=== PATIENT | female | born 1990 | race Caucasian/White ===

== ENCOUNTER 2016-06-16 | Outpatient (CLI) | END 2016-06-16 18:32 | disposition EMS.NT ==

== ENCOUNTER 2016-10-08 09:21 | Emergency (ER) | payer MEDICAID ==
[2016-10-08] MEDS ORDERED: cefTRIAXone 1 GM in SODIUM CHLORIDE 0.9% MINIBAG 100 ML IV STA (11:19)
[2016-10-08] MEDS ORDERED: cefTRIAXone 1 GM VIAL ONE ×2 (11:20→11:42)
[2016-10-08] MEDS ORDERED: SODIUM CHLORIDE 0.9% MINIBAG 100 ML IV ONE (11:20)
[2016-10-08] MEDS ORDERED: cefTRIAXone 1 GM VIAL IM STA (11:37)
[2016-10-08] MEDS ORDERED: LIDOCAINE 1% 2 ML VIAL ONE (11:42)
== END 2016-10-08 13:40 | disposition home or self-care (01) ==
DX: N12 Tubulo-interstitial nephritis, not specified as acute or chronic (principal); N26.1 Atrophy of kidney (terminal); R11.2 Nausea with vomiting, unspecified; F17.200 Nicotine dependence, unspecified, uncomplicated

== ENCOUNTER 2016-12-09 18:49 | Emergency (ER) | payer MEDICAID ==
[2016-12-09 19:03] VITALS: BP 136/91
[2016-12-09] MEDS ORDERED: HYDROcod/ACETAM 5/325 MG TABLET PO STA (19:58)
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
[2016-12-09] MEDS ORDERED: HYDROcod/ACETAM 5/325 MG TABLET ONE (20:05)
--- NOTE | 2016-12-09 20:23 | XRAY Preliminary Report ---
Exam: XR Knee 4 View LT IMPRESSION: Normal knee radiography. [facility] SITE ID: [id number]
--- NOTE | 2016-12-09 20:25 | XRAY Report ---
EXAM: LEFT KNEE RADIOGRAPHY EXAM DATE: 12/09/2016 07:58 PM. CLINICAL HISTORY: Knee pain. COMPARISON: None. TECHNIQUE: 4 views. FINDINGS: Bones: Normal. No fractures or bone lesions. Joints: Normal. No effusion. No subluxations. Soft Tissues: Normal. No soft tissue swelling. IMPRESSION: Normal knee radiography. [facility] Referring Provider Line: [phone] SITE ID: [id number]
== END 2016-12-09 20:40 | disposition home or self-care (01) ==
LOC: ED 18:49
DX: S80.01XA Contusion of right knee, initial encounter (principal); S83.92XA Sprain of unspecified site of left knee, initial encounter; V43.62XA Car passenger injured in collision with other type car in traffic accident, initial encounter; R03.0 Elevated blood-pressure reading, without diagnosis of hypertension; F17.200 Nicotine dependence, unspecified, uncomplicated
CPT/HCPCS: 73564; 99283; A9270

== ENCOUNTER 2017-02-19 19:34 | Emergency (ER) | payer MEDICAID ==
[2017-02-19] MEDS ORDERED: ACETAMINOPHEN 325 MG TABLET PO STA (19:50)
--- NOTE | 2017-02-19 19:51 | ED Physician Documentation ---
PD HPI ABD PAIN - Stated complaint Stated Complaint: STOMACH PX - Chief complaint Chief Complaint: Abd Pain - History obtained from History obtained from: Patient - History of Present Illness Timing - onset: Other (26-year-old G4 who had a normal menses about a month ago. Although she does not know the day. She has been sexually active and had a positive urine test at home earlier in the week and today she has bleeding and cramping that is more significant than her usual menses. There is no nausea or vomiting.) Review of Systems Ten Systems: 10 systems reviewed and negative Constitutional: reports: Reviewed and negative Throat: reports: Reviewed and negative Cardiac: reports: Reviewed and negative Respiratory: reports: Reviewed and negative PD PAST MEDICAL HISTORY - Past Medical History Cardiovascular: None Respiratory: None Neuro: None Endocrine/Autoimmune: None GI: None : Chronic bladder infection, Other HEENT: None Psych: Anxiety Musculoskeletal: None - Past Surgical History Past Surgical History: Yes - Present Medications Home Medications: Ambulatory Orders Medication Instructions Recorded Confirmed No Known Home Medications [No 02/19/17 02/19/17 Known Home Medications] - Allergies Allergies/Adverse Reactions: Allergies Allergy/AdvReac Type Severity Reaction Status Date / Time Penicillins Allergy Rash Verified 02/19/17 19:41 - Social History Does the pt smoke?: No Smoking Status: Never smoker Does the pt drink ETOH?: No Does the pt have substance abuse?: No - Family History Family history: reports: Non contributory - Immunizations Immunizations are current?: Yes - POLST Patient has POLST: No PD ED PE NORMAL - Vitals Vital signs reviewed: Yes - General General: Alert and oriented X 3, No acute distress - Abdomen Abdomen: Normal bowel sounds, Soft, Non tender - Female Female : Other (Bedside ultrasound demonstrates no obvious , no free fluid.) - Neuro Neuro: Alert and oriented X 3, Normal speech - Psych Psych: Normal mood, Normal affect Results - Vitals Vitals: Vital Signs - 24 hr 02/19/17 19:38 Temperature 36.6 C Heart Rate 66 Respiratory 16 Rate Blood Pressure 133/93 H O2 Saturation 100 Oxygen O2 Source Room air - Labs Labs: Laboratory Tests 02/19/17 02/19/17 02/19/17 20:00 20:00 20:00 WBC 8.9 RBC 4.65 Hgb 13.9 Hct 41.7 MCV 89.7 MCH 29.8 MCHC 33.2 RDW 13.1 Plt Count 198 MPV 8.7 Neut # 6.4 Lymph # 1.9 [place] # 0.5 Eos # 0.1 Baso # 0.1 Absolute Nucleated RBC 0.00 Nucleated RBCs 0.0 Sodium 138 Potassium 3.6 Chloride 109 Carbon Dioxide 21 Anion Gap 8.0 BUN 25 H Creatinine 1.7 H Estimated GFR (MDRD) 36 L Glucose 97 Calcium 9.3 HCG, Quant < 0.60 PD MEDICAL DECISION MAKING - ED course ED course: 26-year-old woman presents with vaginal bleeding and cramping at the time of her usual menses, it is worse than normal though and she had a recent home positive test and she was worried about miscarriage, she was relieved to know that her serum beta hCG was negative ruling this out. Departure - Departure Disposition: 01 Home, Self Care Clinical Impression: Menses painful Condition: Good Record reviewed to determine appropriate education?: Yes Instructions: ED Bleeding Menstrual Heavy Comments: Your blood pressure was elevated today on check into the emergency department. This does not mean that you have hypertension, it is a common phenomenon to come to the emergency department and have elevated blood pressure. I recommend that she see your primary care physician within the week to have it rechecked when you are feeling better.
[2017-02-19] MEDS ORDERED: ACETAMINOPHEN 325 MG TABLET PO ONE (20:07)
[2017-02-19 20:12] LABS: BASOPHILS # (AUTO) 0.1 10^3/uL (0.0-0.1); BASOPHILS % (AUTO) 0.6 %; EOSINOPHILS # (AUTO) 0.1 10^3/uL (0.0-0.7); EOSINOPHILS % (AUTO) 0.6 %; HCT - HEMATOCRIT 41.7 % (37.0-47.0); HGB - HEMOGLOBIN 13.9 g/dL (12.0-16.0); LYMPHOCYTES # (AUTO) 1.9 10^3/uL (1.5-3.5); LYMPHOCYTES % (AUTO) 21.4 %; MEAN CORPUSCULAR HEMOGLOBIN 29.8 pg (27.0-31.0); MEAN CORPUSCULAR HGB CONC 33.2 g/dL (32.0-36.0); MEAN CORPUSCULAR VOLUME 89.7 fL (81.0-99.0); MEAN PLATELET VOLUME 8.7 fL (7.9-10.8); MONOCYTES # (AUTO) 0.5 10^3/uL (0.0-1.0); MONOCYTES % (AUTO) 5.8 %; NEUTROPHILS # (AUTO) 6.4 10^3/uL (1.5-6.6); NEUTROPHILS % (AUTO) 71.6 %; RED BLOOD COUNT 4.65 10^6/uL (4.20-5.40); RED CELL DISTRIBUTION WIDTH 13.1 % (12.0-15.0); UNCORRECTED WHITE BLOOD COUNT 8.9 x10^3/uL; WHITE BLOOD COUNT 8.9 x10^3/uL (4.8-10.8)
[2017-02-19 20:16] LABS: CALCIUM 9.3 mg/dL (8.5-10.3); CREATININE 1.7 mg/dL (0.4-1.0); POTASSIUM 3.6 mmol/L (3.5-5.0)
[2017-02-19] MEDS ORDERED: HYDROcod/ACET 5/325 Prepack 6 PO STA (20:36)
[2017-02-19] MEDS ORDERED: HYDROcod/ACET 5/325 Prepack 6 PO ONE (20:43)
[2017-02-19 20:44] VITALS: BP 139/88
== END 2017-02-19 20:44 | disposition home or self-care (01) ==
LOC: ED 19:34
DX: N94.6 Dysmenorrhea, unspecified (principal); R03.0 Elevated blood-pressure reading, without diagnosis of hypertension
CPT/HCPCS: 36415; 80048; 84702; 85025; 99282; 99283

== ENCOUNTER 2017-08-10 10:54 | Emergency (ER) | payer MEDICAID | END 2017-08-10 11:30 | disposition left against medical advice (07) | LOC: ED 10:54 | DX: Z53.9 Procedure and treatment not carried out, unspecified reason (principal) ==

== ENCOUNTER 2017-08-13 18:29 | Emergency (ER) | payer MEDICAID ==
[2017-08-13] MEDS ORDERED: SODIUM CHLORIDE 0.9% 1,000 ML IV ONE (20:06)
[2017-08-13] MEDS ORDERED: KETOROLAC 60 MG/2 ML VIAL IVP STA (20:06)
[2017-08-13 20:25] LABS: BASOPHILS % (AUTO) 0.4 %; EOSINOPHILS % (AUTO) 0.1 %; HGB - HEMOGLOBIN 14.5 g/dL (12.0-16.0); LYMPHOCYTES # (AUTO) 0.9 10^3/uL (1.5-3.5); LYMPHOCYTES % (AUTO) 20.3 %; MEAN CORPUSCULAR HEMOGLOBIN 29.3 pg (27.0-31.0); MEAN CORPUSCULAR HGB CONC 33.4 g/dL (32.0-36.0); MEAN CORPUSCULAR VOLUME 87.9 fL (81.0-99.0); MEAN PLATELET VOLUME 8.2 fL (7.9-10.8); MONOCYTES # (AUTO) 0.5 10^3/uL (0.0-1.0); MONOCYTES % (AUTO) 10.8 %; NEUTROPHILS % (AUTO) 68.4 %; PLT - PLATELET COUNT 175 10^3/uL (130-450); RED BLOOD COUNT 4.93 10^6/uL (4.20-5.40); RED CELL DISTRIBUTION WIDTH 12.7 % (12.0-15.0); WHITE BLOOD COUNT 4.4 x10^3/uL (4.8-10.8)
[2017-08-13 20:39] LABS: ALBUMIN 3.6 g/dL (3.2-5.5); ALBUMIN/GLOBULIN RATIO 0.9 (1.0-2.2); BILIRUBIN,TOTAL 0.4 mg/dL (0.2-1.0); CALCIUM 8.9 mg/dL (8.5-10.3); CREATININE 2.3 mg/dL (0.4-1.0); TOTAL PROTEIN 7.6 g/dL (6.7-8.2)
--- NOTE | 2017-08-13 21:16 | ED Physician Documentation ---
History of Present Illness - Stated complaint Stated Complaint: FEVER/EAR PX - Chief complaint Chief Complaint: General - History obtained from History obtained from: Patient - History of Present Illness Timing: How many days ago (4) - Additonal information Additional information: Patient is a 27 year old female with a history of renal failure who is presenting to the emergency department for fevers, chills, congestion, ear pain and vomiting. Patient states that the symptoms have been going on for the last 4 days or so. She came to the hospital once but did not want to wait so she went home. 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 Review of Systems Constitutional: reports: Fever, Chills, Myalgias Eyes: denies: Decreased vision, Irritation Ears: reports: Ear pain Nose: reports: Rhinorrhea / runny nose, Congestion, Sinus pressure / pain Throat: denies: Sore throat Cardiac: denies: Chest pain / pressure, Palpitations Respiratory: denies: Cough, Wheezing GI: reports: Nausea, Vomiting. denies: Constipation, Diarrhea : reports: Reviewed and negative Skin: denies: Rash, Lesions Musculoskeletal: denies: Neck pain, Back pain, Extremity pain Neurologic: reports: Generalized weakness. denies: Focal weakness, Headache, LOC Immunocompromised: denies: Immunocompromised PD PAST MEDICAL HISTORY - Past Medical History Past Medical History: Yes Cardiovascular: None Respiratory: None Neuro: None Endocrine/Autoimmune: None GI: None : Chronic bladder infection, Other HEENT: None Psych: Anxiety Musculoskeletal: None - Past Surgical History Past Surgical History: Yes - Present Medications Home Medications: Ambulatory Orders Medication Instructions Recorded Confirmed Ondansetron Odt [Zofran] 4 mg TL Q6H PRN #20 tablet 08/13/17 - Allergies Allergies/Adverse Reactions: Allergies Allergy/AdvReac Type Severity Reaction Status Date / Time Penicillins Allergy Rash Verified 08/13/17 18:46 - Social History Does the pt smoke?: No Smoking Status: Never smoker Does the pt drink ETOH?: No Does the pt have substance abuse?: No - Immunizations Immunizations are current?: Yes - POLST Patient has POLST: No PD ED PE NORMAL - Vitals Vital signs reviewed: Yes - General General: Alert and oriented X 3 - HEENT HEENT: Atraumatic, PERRL - Neck Neck: Supple, no meningeal sign - Cardiac Cardiac: RRR, No murmur - Respiratory Respiratory: No respiratory distress - Abdomen Abdomen: Soft, Non tender, Non distended - Derm Derm: Normal color, No rash - Extremities Extremities: No deformity - Neuro Neuro: Alert and oriented X 3 Eye Opening: Spontaneous PD ED PE EXPANDED - General General: Alert - HEENT HEENT: R TM bulging, L TM bulging, Nasal congestion, Rhinorrhea, Dry mucous membranes Results - Vitals Vitals: Vital Signs - 24 hr 08/13/17 08/13/17 18:42 21:45 Temperature 37.4 C 36.4 C L Heart Rate 107 H 95 Respiratory 18 16 Rate Blood Pressure 133/94 H 134/66 H O2 Saturation 99 98 Oxygen O2 Source Room air - Labs Labs: Laboratory Tests 08/13/17 08/13/17 08/13/17 20:19 20:19 20:26 WBC 4.4 L RBC 4.93 Hgb 14.5 Hct 43.3 MCV 87.9 MCH 29.3 MCHC 33.4 RDW 12.7 Plt Count 175 MPV 8.2 Neut # 3.0 Lymph # 0.9 L [place] # 0.5 Eos # 0.0 Baso # 0.0 Absolute Nucleated RBC 0.01 Nucleated RBC % 0.3 Sodium 138 Potassium 3.8 Chloride 107 Carbon Dioxide 21 Anion Gap 10.0 BUN 27 H Creatinine 2.3 H Estimated GFR (MDRD) 25 L Glucose 92 Calcium 8.9 Total Bilirubin 0.4 AST 21 ALT 16 Alkaline Phosphatase 63 Total Protein 7.6 Albumin 3.6 Globulin 4.0 Albumin/Globulin Ratio 0.9 L Lipase 18 L Influenza A (Rapid) Negative Influenza B (Rapid) POSITIVE H Influenza Types A,B Ag + H PD MEDICAL DECISION MAKING - ED course Complexity details: reviewed old records, reviewed results, re-evaluated patient , considered differential, d/w patient ED course: patient was seen and examined at bedside. IV access was gained and patient was treated with a fluid bolus. flu swab was performed and was positive. Patient was made aware of her findings and her renal function tests were printed off for her. the importance of nephrology follow up was made clear and patient stated that she would be able to follow up with week. Patient was tolerated PO without difficulty. Patient required no further inpatient work up and was stable for discharge with outpatient follow up. Departure - Departure Disposition: 01 Home, Self Care Clinical Impression: Influenza Condition: Good Instructions: ED Flu Follow-Up: primary,care provider [Other] - Tomorrow Prescriptions: Ondansetron Odt [Zofran] 4 mg TL Q6H PRN #20 tablet PRN Reason: Nausea / Vomiting Comments: Your symptoms today are being caused by the flu. YOu should take tylenol 1gm every 6 hours as needed for fevers and aches. Your kidney function is getting worse and it is imperative that you follow up with your doctor tomorrow. You should drink at least 100oz of fluids (mainly water) a day. You may return to the emergency department at any time for new, worsening or uncontrollable symptoms. Discharge Date/Time: 08/13/17 21:51
[2017-08-13 21:46] VITALS: BP 134/66
== END 2017-08-13 21:51 | disposition home or self-care (01) ==
LOC: ED 18:29
DX: J11.1 Influenza due to unidentified influenza virus with other respiratory manifestations (principal)
CPT/HCPCS: 36415; 80053; 83690; 85025; 87275; 87276; 96361; 96374; 99283

== ENCOUNTER 2018-05-05 17:43 | Outpatient (CLI) | payer MEDICAID ==
[2018-05-05 18:06] LABS: BILIRUBIN,URINE NEGATIVE (NEGATIVE); GLUCOSE, URINE (UA) NEGATIVE (NEGATIVE); KETONES,URINE (UA) NEGATIVE (NEGATIVE); LEUKOCYTE ESTERASE, URINE SMALL (NEGATIVE); NITRITE,URINE NEGATIVE (NEGATIVE); OCCULT BLOOD,URINE TRACE-INTA (NEGATIVE); PROTEIN,URINE 100 mg/dL (NEGATIVE); UROBILINOGEN,URINE 0.2 (NORMAL) E.U./dL (NORMAL)
[2018-05-05 18:07] LABS: BASOPHILS # (AUTO) 0.1 10^3/uL (0.0-0.1); BASOPHILS % (AUTO) 0.9 %; CLARITY,URINE HAZY (CLEAR); EOSINOPHILS # (AUTO) 0.1 10^3/uL (0.0-0.7); HGB - HEMOGLOBIN 14.1 g/dL (12.0-16.0); LYMPHOCYTES # (AUTO) 1.8 10^3/uL (1.5-3.5); LYMPHOCYTES % (AUTO) 26.1 %; MEAN CORPUSCULAR HEMOGLOBIN 29.6 pg (27.0-31.0); MEAN CORPUSCULAR HGB CONC 32.5 g/dL (32.0-36.0); MEAN PLATELET VOLUME 8.6 fL (7.9-10.8); MONOCYTES # (AUTO) 0.4 10^3/uL (0.0-1.0); NEUTROPHILS # (AUTO) 4.6 10^3/uL (1.5-6.6); PLT - PLATELET COUNT 212 10^3/uL (130-450); RED BLOOD COUNT 4.76 10^6/uL (4.20-5.40); RED CELL DISTRIBUTION WIDTH 13.1 % (12.0-15.0); WHITE BLOOD COUNT 6.9 x10^3/uL (4.8-10.8)
[2018-05-05 18:25] LABS: ALBUMIN/GLOBULIN RATIO 1.2 (1.0-2.2); ALKALINE PHOSPHATASE 71 IU/L (42-121); ALT ALANINE AMINOTRANSFERASE 14 IU/L (10-60); AST ASPARTATE AMINOTRANSFERASE 19 IU/L (10-42); BILIRUBIN,TOTAL 0.3 mg/dL (0.2-1.0); BUN - BLOOD UREA NITROGEN 27 mg/dL (6-20); CARBON DIOXIDE - CO2 19 mmol/L (21-32); CHLORIDE 112 mmol/L (101-111); CHOL/HDL RATIO 4.2 (<4.4); CHOLESTEROL 191 mg/dL; CREATININE 2.1 mg/dL (0.4-1.0); GFR - MDRD 28 (>89); GLUCOSE 93 mg/dL (70-100); HDL CHOLESTEROL 45 mg/dL; LDL CHOLESTEROL,CALCULATED 124 mg/dL; LDL/HDL RATIO 2.8 (<4.4); SODIUM 138 mmol/L (135-145); TOTAL PROTEIN 7.4 g/dL (6.7-8.2); VLDL CHOLESTEROL 22 mg/dL
--- NOTE | 2018-05-06 14:37 | XRAY Report ---
Reason: Lumbar Pain Procedure Date: 05/05/2018 Accession Number: [id number] / [id number] Procedure: XR - Lumbar Spine 2 View CPT Code: FULL RESULT: EXAM: LUMBOSACRAL SPINE RADIOGRAPHY EXAM DATE: 05/05/2018 06:18 PM. CLINICAL HISTORY: Lumbar Pain. COMPARISONS: LUMBAR SPINE 2 VIEW 06/16/2015 9:53 AM XR LUMBAR SPINE 2 OR 3 VIEWS 07/11/2010 5:01 PM. TECHNIQUE: 2 views. FINDINGS: Alignment: Normal. No spondylolisthesis or scoliosis. Bones: Five cgj-mzz-dquptse lumbar vertebral bodies are present. No fractures or bone lesions. Disks: Normal. Disk heights are maintained. Facets: No degenerative changes. Sacroiliac Joints: Unremarkable. Soft Tissues: Normal. The visualized bowel gas pattern is normal. IMPRESSION: Normal lumbar spine radiography. No acute osseous abnormality. [facility]
== END 2018-05-05 17:44 | disposition home or self-care (01) ==
LOC: DI 17:43
PROVIDERS: ATTEND Internal Medicine
DX: M54.5 Low back pain (principal); N18.3 Chronic kidney disease, stage 3 (moderate); N39.0 Urinary tract infection, site not specified; F41.1 Generalized anxiety disorder
CPT/HCPCS: 36415; 72100; 80053; 80061; 81003; 83721; 84443; 85025

== ENCOUNTER 2018-05-06 22:53 | Emergency (ER) | payer MEDICAID ==
[2018-05-06 23:10] VITALS: BP 151/77
--- NOTE | 2018-05-07 00:49 | ED Physician Documentation ---
PD HPI LOWER EXT INJURY - Stated complaint Stated Complaint: LT FOOT PX - Chief complaint Chief Complaint: Ext Problem - History obtained from History obtained from: Patient - History of Present Illness PD HPI LOW EXT INJURY LOCATION: Left, Sole / plantar Type of injury: Other (just onset of pain near heel with walking and at end of day 2 months ago and is gett). No: Fall, Twist Where injury occurred: Home. No: A house / apartment Timing - onset: Enter time (over a month) Timing - duration: Months (1) Associated symptoms: No: Weakness, Numbness Contributing factors: No: Anticoagulated Similar symptoms before: Has not had sx before Review of Systems Constitutional: denies: Fever, Chills Musculoskeletal: reports: Extremity pain. 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 - Past Surgical History Past Surgical History: Yes - Present Medications Home Medications: Ambulatory Orders Medication Instructions Recorded Confirmed Dexamethasone [Decadron] 4 mg PO DAILY #5 tablet 05/07/18 Naproxen 375 mg PO BID #20 tablet 05/07/18 Tramadol HCl 50 mg PO Q6H PRN #15 tablet 05/07/18 - Allergies Allergies/Adverse Reactions: Allergies Allergy/AdvReac Type Severity Reaction Status Date / Time Penicillins Allergy Rash Verified 05/06/18 23:10 - Social History Does the pt smoke?: No Smoking Status: Former smoker Does the pt drink ETOH?: No ETOH Use: Liquor Does the pt have substance abuse?: No - Immunizations Immunizations are current?: Yes - POLST Patient has POLST: No PD ED PE NORMAL - Vitals Vital signs reviewed: Yes - General General: Alert and oriented X 3, No acute distress, Well developed/nourished, Other (limping gait) - Cardiac Cardiac: RRR, No murmur - Back Back: No CVA TTP, No spinal TTP - Derm Derm: Normal color, Warm and dry - Extremities Extremities: No tenderness to palpate, Normal ROM s pain, Other (left proximal plantar area with marked tenderness without rash. Mild local swelling.) - Neuro Neuro: Alert and oriented X 3, No motor deficit, No sensory deficit, Normal speech Results - Vitals Vitals: Oxygen O2 Source Room air Departure - Departure Disposition: 01 Home, Self Care Clinical Impression: Plantar fasciitis of left foot Condition: Stable Record reviewed to determine appropriate education?: Yes Instructions: ED Plantar Fasciitis Follow-Up: Kristin Holguin MD [Primary Care Provider] - Prescriptions: Dexamethasone [Decadron] 4 mg PO DAILY #5 tablet Naproxen 375 mg PO BID #20 tablet Tramadol HCl 50 mg PO Q6H PRN #15 tablet PRN Reason: Pain Comments: Use the firm soled shoe to reduce stretch and movement through the midfoot. Also importantly pick pack worker a heel cup padding at the store that will soften and lift the heel slightly and change the angle of the ankle just slightly so it reduces the stretch in the plantar fascia. Decadron steroid anti-inflammatory for 5 more days. Naproxen anti-inflammatory twice daily for the next week. Add tramadol if needed for pain. Follow-up with your primary care if not improved over the next several days to week. This will take a little bit of a while to improve (often a week or two, but should be improving over the first several days to a week). Discharge Date/Time: 05/07/18 01:47
[2018-05-07] MEDS ORDERED: HYDROcod/ACETAM 5/325 MG TABLET PO STA (01:12)
[2018-05-07] MEDS ORDERED: NAPROXEN 250 MG TABLET PO STA (01:12)
[2018-05-07] MEDS ORDERED: DEXAMETHASONE 10 MG/ML VIAL PO STA (01:12)
[2018-05-07] MEDS ORDERED: CHERRY SYRUP 10 ML UDC PO ONE (01:34)
== END 2018-05-07 01:47 | disposition home or self-care (01) ==
LOC: ED 22:53
DX: M72.2 Plantar fascial fibromatosis (principal); Z87.891 Personal history of nicotine dependence
CPT/HCPCS: 99283; A9270

== ENCOUNTER 2018-08-02 17:22 | Emergency (ER) | payer MEDICAID ==
[2018-08-02] MEDS ORDERED: SODIUM CHLORIDE 0.9% 1,000 ML IV ONE (17:48)
[2018-08-02] MEDS ORDERED: KETOROLAC 30 MG/ML VIAL IVP STA (17:48)
[2018-08-02] MEDS ORDERED: METOCLOPRAMIDE 10 MG/2 ML VIAL IVP STA (17:48)
--- NOTE | 2018-08-02 17:51 | ED Physician Documentation ---
PD HPI HEADACHE - Stated complaint Stated Complaint: DWYER/BLURRY VISION - Chief complaint Chief Complaint: Neuro - History obtained from History obtained from: Patient - History of Present Illness Timing - onset: Other (The last 6 months she said increasing bitemporal headaches associated with gold flakes in her vision throughout both of her eyes. She is not nauseous but light does bother her. She denies neck stiffness or fevers. There is no possibility of . 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 : Chronic bladder infection, Kidney stones, Other HEENT: None Psych: Anxiety Musculoskeletal: None Derm: None, Other - Past Surgical History Past Surgical History: Yes - Present Medications Home Medications: Ambulatory Orders Medication Instructions Recorded Confirmed Acetaminophen/Cod 300/30 [Tylenol 1 each PO Q4-6H 08/02/18 08/02/18 #3] SUMAtriptan [Imitrex] 25 mg PO BID PRN #10 tablet 08/02/18 - Allergies Allergies/Adverse Reactions: Allergies Allergy/AdvReac Type Severity Reaction Status Date / Time Penicillins Allergy Rash Verified 08/02/18 17:32 - Social History Does the pt smoke?: No Smoking Status: Former smoker Does the pt drink ETOH?: No Does the pt have substance abuse?: No - Immunizations Immunizations are current?: Yes - POLST Patient has POLST: No PD ED PE NORMAL - Vitals Vital signs reviewed: Yes - General General: Alert and oriented X 3, No acute distress - HEENT HEENT: PERRL, EOMI - Neck Neck: Supple, no meningeal sign, No bony TTP - Cardiac Cardiac: RRR, No murmur - Respiratory Respiratory: No respiratory distress, Clear bilaterally - Abdomen Abdomen: Non tender - Back Back: No CVA TTP, No spinal TTP - Derm Derm: Normal color, Warm and dry - Extremities Extremities: No edema, No calf tenderness / cord - Neuro Neuro: Alert and oriented X 3, Normal speech Eye Opening: Spontaneous Motor: Obeys Commands Verbal: Oriented GCS Score: 15 - Psych Psych: Other (Slightly histrionic and tangential) Results - Vitals Vitals: Vital Signs - 24 hr 08/02/18 17:29 Temperature 36.3 C L Heart Rate 74 Respiratory 20 Rate Blood Pressure 147/87 H O2 Saturation 100 Oxygen O2 Source Room air - Rads (name of study) CT Head Radiology: EMP read contemporaneously (normal) PD MEDICAL DECISION MAKING - ED course ED course: 28-year-old woman with what sounds like migraine headaches that are new, she did actually have relief with Toradol and Reglan here. She requested cranial imaging which is not unreasonable, and this was negative. She understands she needs to follow-up with her physician for further evaluation and treatment. Departure - Departure Disposition: 01 Home, Self Care Clinical Impression: Migraine Qualifiers: Migraine type: with aura Status migrainosus presence: with status migrainosus Intractability: intractable Qualified Code(s): G43.111 - Migraine with aura, intractable, with status migrainosus Condition: Stable Record reviewed to determine appropriate education?: Yes Instructions: Imitrex, ED Headache Migraine Prescriptions: SUMAtriptan [Imitrex] 25 mg PO BID PRN #10 tablet PRN Reason: Headache Comments: Call your doctor to arrange a follow-up appointment, make the next available appointment. In the interim, return anytime if worse or if new symptoms develop. Your blood pressure was elevated today on check into the emergency department. This does not mean that you have hypertension, it is a common phenomenon to come to the emergency department and have elevated blood pressure. I recommend that you see your primary care physician within the week to have it rechecked when you are feeling better.
--- NOTE | 2018-08-02 19:04 | CT Report ---
Reason: headache Procedure Date: 08/02/2018 Accession Number: [id number] / [id number] Procedure: CT - HEAD WO CPT Code: FULL RESULT: EXAM: CT HEAD EXAM DATE: 08/02/2018 06:21 PM. CLINICAL HISTORY: Headache. COMPARISON: HEAD W/O 07/23/2014 4:24 PM HEAD 06/22/2011 3:48 AM. TECHNIQUE: Multiaxial CT images were obtained from the foramen magnum to the vertex. Reformats: Sagittal and coronal. IV contrast: None. In accordance with CT protocol optimization, one or more of the following dose reduction techniques were utilized for this exam: automated exposure control, adjustment of mA and/or KV based on patient size, or use of iterative reconstructive technique. FINDINGS: Parenchyma: No intraparenchymal hemorrhage. No evidence of mass, midline shift, or CT findings of infarction. Pimentel-white differentiation is distinct. Extraaxial Spaces: Normal for age. No subdural or epidural collections identified. Ventricles: Normal in size and position. Sinuses and Orbits: Imaged paranasal sinuses, orbits, and mastoids show no significant abnormality. Bones: No evidence of fracture or calvarial defect. Other: None. IMPRESSION: No acute intracranial CT abnormality. RADIA
[2018-08-02 19:30] VITALS: BP 132/78
== END 2018-08-02 19:30 | disposition home or self-care (01) ==
LOC: ED 17:22
DX: G43.111 Migraine with aura, intractable, with status migrainosus (principal); R03.0 Elevated blood-pressure reading, without diagnosis of hypertension; Z87.891 Personal history of nicotine dependence
CPT/HCPCS: 70450; 96361; 96374; 99283; J2765

== ENCOUNTER 2018-09-15 22:54 | Emergency (ER) | payer MEDICAID ==
[2018-09-15 23:16] LABS: BILIRUBIN,URINE NEGATIVE (NEGATIVE); GLUCOSE, URINE (UA) NEGATIVE (NEGATIVE); KETONES,URINE (UA) NEGATIVE (NEGATIVE); LEUKOCYTE ESTERASE, URINE MODERATE (NEGATIVE); NITRITE,URINE POSITIVE (NEGATIVE); OCCULT BLOOD,URINE TRACE-LYSE (NEGATIVE); PROTEIN,URINE 100 mg/dL (NEGATIVE); UROBILINOGEN,URINE 0.2 (NORMAL) E.U./dL (NORMAL)
[2018-09-15 23:18] LABS: CLARITY,URINE SL. CLOUDY (CLEAR); HCG UR QUAL NEGATIVE
[2018-09-15 23:26] LABS: BACTERIA,URINE Many /HPF (None Seen); MUCUS,URINE Marked Strands; RBC,URINE 3 /HPF (0-5); SQUAMOUS EPITHELIAL CELL,UR RARE Squamous (<= Few)
--- NOTE | 2018-09-15 23:45 | ED Physician Documentation ---
PD HPI FEMALE - Stated complaint Stated Complaint: ABD CRAMP - Chief complaint Chief Complaint: Abd Pain - History obtained from History obtained from: Patient - History of Present Illness Timing - onset: How many weeks ago (3) Timing - duration: Weeks (3) Timing - details: Gradual onset, Still present Associated symptoms: Back pain, Pelvic pain, Urinary frequency Contributing factors: (has had 3 + tests last night followed by 2 negative tests after consuming fluids.) Similar symptoms before: Diagnosis (UTI) Recently seen: Clinic - Additional information Additional information: 28-year-old female reports that she has had some pelvic cramping is been going on for some time she has been drinking some fluids with cranberry juice and it and she has had 3+ test last night. She reports that after she drank some fluid following that she had 2- test. She also reports that she is been to see her doctor and had a negative test on 07 September. She does acknowledge urinary frequency. Review of Systems Constitutional: denies: Fever Eyes: denies: Decreased vision Ears: denies: Ear pain Nose: denies: Rhinorrhea / runny nose, Congestion Throat: denies: Sore throat Cardiac: denies: Chest pain / pressure, Palpitations Respiratory: denies: Dyspnea, Cough GI: reports: Abdominal Pain. denies: Nausea, Vomiting : reports: Frequency. denies: Dysuria Skin: denies: Rash Musculoskeletal: reports: Back pain. 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 : Chronic bladder infection, Kidney stones, Other HEENT: None Psych: Anxiety Musculoskeletal: None Derm: None, Other - Past Surgical History Past Surgical History: Yes /TRENCH PIPE LAYER: Other - Present Medications Home Medications: Ambulatory Orders Medication Instructions Recorded Confirmed Acetaminophen/Cod 300/30 [Tylenol 1 each PO Q4-6H 08/02/18 08/02/18 #3] SUMAtriptan [Imitrex] 25 mg PO BID PRN #10 tablet 08/02/18 Sulfamethoxazole/Trimethoprim 1 each PO BID #10 tablet 09/16/18 [Sulfamethoxazole-Tmp Ds Tablet] - Allergies Allergies/Adverse Reactions: Allergies Allergy/AdvReac Type Severity Reaction Status Date / Time Penicillins Allergy Rash Verified 09/15/18 23:02 - Social History Does the pt smoke?: No Smoking Status: Never smoker Does the pt drink ETOH?: No Does the pt have substance abuse?: No - Immunizations Immunizations are current?: Yes - POLST Patient has POLST: No PD ED PE NORMAL - Vitals Vital signs reviewed: Yes (normal ) - General General: Alert and oriented X 3, No acute distress, Well developed/nourished - HEENT HEENT: Atraumatic, PERRL, EOMI - Neck Neck: Supple, no meningeal sign - Cardiac Cardiac: RRR, No murmur - Respiratory Respiratory: No respiratory distress, Clear bilaterally - Abdomen Abdomen: Soft, Non tender - Back Back: No CVA TTP, No spinal TTP - Derm Derm: Normal color, Warm and dry, No rash - Extremities Extremities: No deformity, No edema - Neuro Neuro: Alert and oriented X 3, java technical architect 2-12 intact, No motor deficit, No sensory deficit, Normal speech Eye Opening: Spontaneous Motor: Obeys Commands Verbal: Oriented GCS Score: 15 - Psych Psych: Normal mood, Normal affect Results - Vitals Vitals: Vital Signs - 24 hr 09/15/18 09/15/18 22:56 23:05 Temperature 36.8 C 36.8 C Heart Rate 83 83 Respiratory 18 18 Rate Blood Pressure 130/61 130/61 O2 Saturation 100 100 Oxygen O2 Source Room air - Labs Labs: Laboratory Tests 09/15/18 09/15/18 09/15/18 23:07 23:07 23:45 HCG, Quant < 0.60 Urine Color YELLOW Urine Clarity SL. CLOUDY Urine pH 6.0 Ur Specific [place] 1.020 1.020 Urine Protein 100 H Urine Glucose (UA) NEGATIVE Urine Ketones NEGATIVE Urine Occult Blood TRACE-LYSE Urine Nitrite POSITIVE H Urine Bilirubin NEGATIVE Urine Urobilinogen 0.2 (NORMAL) Ur Leukocyte Esterase MODERATE H Urine RBC 3 Urine WBC >25 H Ur Squamous Epith Cells RARE Squamous Urine Bacteria Many H Urine Mucus Marked Strands Ur Microscopic Review INDICATED Urine Culture Comments INDICATED Urine HCG, Qual NEGATIVE PD MEDICAL DECISION MAKING - ED course Complexity details: reviewed results, re-evaluated patient, considered differential, d/w patient ED course: 28 y/o female with some abdominal cramping has UTI on evaluation of the urine. She was concerned about and this does not seem likely given her quant of <0.6. Departure - Departure Disposition: 01 Home, Self Care Clinical Impression: Urinary tract infection Qualifiers: Urinary tract infection type: acute cystitis Hematuria presence: without hematuria Qualified Code(s): N30.00 - Acute cystitis without hematuria Condition: Stable Instructions: ED UTI Cystitis Female Follow-Up: Kristin Holguin MD [Primary Care Provider] - Prescriptions: Sulfamethoxazole/Trimethoprim [Sulfamethoxazole-Tmp Ds Tablet] 1 each PO BID #10 tablet
[2018-09-16] MEDS ORDERED: SULFAM/TRIM 800/160 Prepack 2 PO ONE (00:24)
[2018-09-16 00:52] VITALS: BP 136/61
== END 2018-09-16 00:52 | disposition home or self-care (01) ==
LOC: ED 22:54
DX: N30.00 Acute cystitis without hematuria (principal)
CPT/HCPCS: 36415; 81001; 81003; 81025; 84702; 87086; 87181; 99283

== ENCOUNTER 2018-10-22 09:11 | Outpatient (CLI) | payer MEDICAID ==
--- NOTE | 2018-10-22 12:36 | Ultrasound Report ---
Reason: UNSPECIFIED ABDOMINAL PAIN Procedure Date: 10/22/2018 Accession Number: [id number] / [id number] Procedure: US - Abdomen Complete CPT Code: FULL RESULT: EXAM: ABDOMEN ULTRASOUND EXAM DATE: 10/22/2018 10:00 AM. CLINICAL HISTORY: Unspecified abdominal pain. COMPARISON: ABDOMEN/PELVIS W/O 10/08/2016 10:46 AM. TECHNIQUE: Real-time scanning was performed with static images obtained. FINDINGS: Liver: Normal in size and echotexture. 13.4 cm. Main portal vein flow: Hepatopetal. Gallbladder: Normal. No stones, wall thickening, or sonographic Brooke's sign. Biliary System: Common bile duct measures 3 mm. No intrahepatic or extrahepatic ductal dilatation. Pancreas: Visualized portion is unremarkable. Kidneys: Right: 7.1 cm longitudinally. Diffusely increased echotexture to the cortex. Areas of cortical volume loss. Left: 9.2 cm longitudinally. Diffusely increased in echotexture lobulated contour with areas of volume loss. Probable 1.9 cm crenulated cyst of the upper mid cortex. Spleen: 9.4 x 4.8 x 9.7 cm. Normal in size and echotexture. Aorta and Inferior Vena Cava: Unremarkable. Other: None. IMPRESSION: 1. Lobular contour, atrophic echogenic kidneys consistent with medical renal disease. 2. No other specific findings of concern. Normal appearance to the gallbladder. RADIA
== END 2018-10-22 09:12 | disposition home or self-care (01) ==
LOC: DI 09:11
PROVIDERS: ATTEND Internal Medicine
DX: N26.1 Atrophy of kidney (terminal) (principal); R10.9 Unspecified abdominal pain
CPT/HCPCS: 76700

== ENCOUNTER 2018-10-26 12:22 | Outpatient (CLI) | payer MEDICAID ==
[2018-10-26 17:38] LABS: BILIRUBIN,URINE NEGATIVE (NEGATIVE); GLUCOSE, URINE (UA) NEGATIVE (NEGATIVE); KETONES,URINE (UA) NEGATIVE (NEGATIVE); LEUKOCYTE ESTERASE, URINE MODERATE (NEGATIVE); NITRITE,URINE NEGATIVE (NEGATIVE); OCCULT BLOOD,URINE SMALL (NEGATIVE); PROTEIN,URINE >=300 mg/dL (NEGATIVE); UROBILINOGEN,URINE 0.2 (NORMAL) E.U./dL (NORMAL)
[2018-10-26 17:42] LABS: CLARITY,URINE HAZY (CLEAR)
[2018-10-26 17:45] LABS: BACTERIA,URINE Few /HPF (None Seen); SQUAMOUS EPITHELIAL CELL,UR MANY Squamous (<= Few); WBC CLUMPS,URINE PRESENT
== END 2018-10-26 23:59 | disposition home or self-care (01) ==
LOC: LAB.R 12:22
PROVIDERS: ATTEND Obstetrics & Gynecology
DX: R39.9 Unspecified symptoms and signs involving the genitourinary system (principal)
CPT/HCPCS: 81001; 81003; 87086

== ENCOUNTER 2018-10-26 12:22 | Outpatient (CLI) | payer MEDICAID ==
[2018-10-26 21:21] LABS: CANDIDA GROUP DNA NEGATIVE (NEGATIVE); CANDIDA KRUSEI DNA NEGATIVE (NEGATIVE); TRICHOMONAS VAGINALIS DNA NEGATIVE (NEGATIVE)
[2018-10-26 21:57] LABS: TRICHOMONAS VAGINALIS DNA NEGATIVE (NEGATIVE)
== END 2018-10-26 23:59 | disposition home or self-care (01) ==
LOC: LAB.R 12:22
PROVIDERS: ATTEND Obstetrics & Gynecology
DX: N89.8 Other specified noninflammatory disorders of vagina (principal)
CPT/HCPCS: 87491; 87591; 87661; 87801

== ENCOUNTER 2018-10-26 12:26 | Outpatient (CLI) | payer MEDICAID ==
[2018-10-27 10:42] LABS: HEPATITIS B SURFACE ANTIGEN NON-REACTIVE (NON-REACTIVE)
[2018-10-27 12:12] LABS: HIV AG/AB 4TH GEN NON-REACTIVE (NON-REACTIVE)
== END 2018-10-26 12:27 | disposition home or self-care (01) ==
LOC: LAB 12:26
PROVIDERS: ATTEND Obstetrics & Gynecology
DX: N89.8 Other specified noninflammatory disorders of vagina (principal); Z11.3 Encounter for screening for infections with a predominantly sexual mode of transmission
CPT/HCPCS: 36415; 81599; 87340; 87389

== ENCOUNTER 2018-11-13 08:00 | Outpatient (CLI) | payer MEDICAID | END 2018-11-13 23:59 | disposition home or self-care (01) | LOC: LAB.R 08:00 | PROVIDERS: ATTEND Obstetrics & Gynecology | DX: A56.09 Other chlamydial infection of lower genitourinary tract (principal) | CPT/HCPCS: 87491; 87591; 87661 ==

== ENCOUNTER 2018-11-16 08:00 | Outpatient (CLI) | payer MEDICAID ==
[2018-11-16 21:04] LABS: TRICHOMONAS VAGINALIS DNA NEGATIVE (NEGATIVE)
== END 2018-11-16 23:59 | disposition home or self-care (01) ==
LOC: LAB.R 08:00
PROVIDERS: ATTEND Obstetrics & Gynecology
DX: A56.09 Other chlamydial infection of lower genitourinary tract (principal)
CPT/HCPCS: 87491; 87591; 87661

== ENCOUNTER 2018-12-06 16:47 | Outpatient (CLI) | payer MEDICAID ==
[2018-12-06 21:37] LABS: CANDIDA GROUP DNA POSITIVE (NEGATIVE); CANDIDA KRUSEI DNA NEGATIVE (NEGATIVE); TRICHOMONAS VAGINALIS DNA NEGATIVE (NEGATIVE)
== END 2018-12-06 23:59 | disposition home or self-care (01) ==
LOC: LAB.R 16:47
PROVIDERS: ATTEND Obstetrics & Gynecology
DX: A56.09 Other chlamydial infection of lower genitourinary tract (principal); R39.9 Unspecified symptoms and signs involving the genitourinary system; Z11.3 Encounter for screening for infections with a predominantly sexual mode of transmission; N89.8 Other specified noninflammatory disorders of vagina
CPT/HCPCS: 87661; 87801

== ENCOUNTER 2018-12-06 16:47 | Outpatient (CLI) | payer MEDICAID | END 2018-12-06 23:59 | disposition home or self-care (01) | LOC: LAB.R 16:47 | PROVIDERS: ATTEND Obstetrics & Gynecology | DX: R39.9 Unspecified symptoms and signs involving the genitourinary system (principal); A56.09 Other chlamydial infection of lower genitourinary tract; Z11.3 Encounter for screening for infections with a predominantly sexual mode of transmission; N89.8 Other specified noninflammatory disorders of vagina | CPT/HCPCS: 87086 ==

== ENCOUNTER 2018-12-28 10:38 | Outpatient (CLI) | payer MEDICAID | END 2018-12-28 23:59 | disposition home or self-care (01) | LOC: LAB.R 10:38 | PROVIDERS: ATTEND Obstetrics & Gynecology | DX: N39.0 Urinary tract infection, site not specified (principal) | CPT/HCPCS: 87086 ==

== ENCOUNTER 2018-12-28 10:38 | Outpatient (CLI) | payer MEDICAID ==
[2018-12-28 21:45] LABS: CANDIDA GROUP DNA NEGATIVE (NEGATIVE); CANDIDA KRUSEI DNA NEGATIVE (NEGATIVE); TRICHOMONAS VAGINALIS DNA NEGATIVE (NEGATIVE)
== END 2018-12-28 23:59 | disposition home or self-care (01) ==
LOC: LAB.R 10:38
PROVIDERS: ATTEND Obstetrics & Gynecology
DX: Z12.4 Encounter for screening for malignant neoplasm of cervix (principal); N89.8 Other specified noninflammatory disorders of vagina; N39.0 Urinary tract infection, site not specified
CPT/HCPCS: 87086; 87661; 87801

== ENCOUNTER 2019-01-03 17:34 | Outpatient (CLI) | payer MEDICAID ==
[2019-01-03 18:07] LABS: BASOPHILS % (AUTO) 0.5 %; EOSINOPHILS # (AUTO) 0.1 10^3/uL (0.0-0.7); EOSINOPHILS % (AUTO) 0.9 %; HGB - HEMOGLOBIN 13.5 g/dL (12.0-16.0); LYMPHOCYTES # (AUTO) 1.6 10^3/uL (1.5-3.5); LYMPHOCYTES % (AUTO) 19.9 %; MEAN CORPUSCULAR HEMOGLOBIN 29.7 pg (27.0-31.0); MEAN CORPUSCULAR HGB CONC 32.1 g/dL (32.0-36.0); MEAN CORPUSCULAR VOLUME 92.5 fL (81.0-99.0); MEAN PLATELET VOLUME 10.3 fL (7.9-10.8); MONOCYTES # (AUTO) 0.5 10^3/uL (0.0-1.0); MONOCYTES % (AUTO) 6.1 %; NEUTROPHILS # (AUTO) 5.7 10^3/uL (1.5-6.6); NEUTROPHILS % (AUTO) 72.3 %; PLT - PLATELET COUNT 216 10^3/uL (130-450); RED BLOOD COUNT 4.55 10^6/uL (4.20-5.40); RED CELL DISTRIBUTION WIDTH 12.9 % (12.0-15.0); WHITE BLOOD COUNT 7.9 x10^3/uL (4.8-10.8)
[2019-01-03 19:35] LABS: CALCIUM 8.8 mg/dL (8.5-10.3)
[2019-01-03 19:36] LABS: ALBUMIN 3.7 g/dL (3.2-5.5); ALBUMIN/GLOBULIN RATIO 1.1 (1.0-2.2); BILIRUBIN,TOTAL 0.6 mg/dL (0.2-1.0)
== END 2019-01-03 17:35 | disposition home or self-care (01) ==
LOC: LAB 17:34
PROVIDERS: ATTEND Obstetrics & Gynecology
DX: D64.9 Anemia, unspecified (principal); N28.9 Disorder of kidney and ureter, unspecified
CPT/HCPCS: 36415; 80053; 82728; 83540; 84466; 85025; 85027; 87491; 87591; 87661

== ENCOUNTER 2019-02-04 20:37 | Emergency (ER) | payer MEDICAID ==
[2019-02-04 20:53] VITALS: BP 134/88
== END 2019-02-04 21:53 | disposition left against medical advice (07) ==
LOC: ED 20:37
DX: Z53.21 Procedure and treatment not carried out due to patient leaving prior to being seen by health care provider (principal)

== ENCOUNTER 2019-03-15 08:00 | Outpatient (CLI) | payer MEDICAID ==
[2019-03-15 21:26] LABS: CANDIDA GROUP DNA NEGATIVE (NEGATIVE); CANDIDA KRUSEI DNA NEGATIVE (NEGATIVE); TRICHOMONAS VAGINALIS DNA NEGATIVE (NEGATIVE)
[2019-03-15 21:59] LABS: TRICHOMONAS VAGINALIS DNA NEGATIVE (NEGATIVE)
== END 2019-03-15 23:59 | disposition home or self-care (01) ==
LOC: LAB.R 08:00
PROVIDERS: ATTEND Nurse Practitioner Obstetrics & Gynecology
DX: R82.79 Other abnormal findings on microbiological examination of urine (principal); N76.0 Acute vaginitis; Z11.3 Encounter for screening for infections with a predominantly sexual mode of transmission
CPT/HCPCS: 87086; 87181; 87491; 87591; 87661; 87801

== ENCOUNTER 2019-03-22 17:52 | Outpatient (CLI) | payer MEDICAID ==
--- NOTE | 2019-03-25 10:15 | CT Report ---
Reason: HEADACHE Procedure Date: 03/22/2019 Accession Number: [id number] / [id number] Procedure: CT - HEAD WO CPT Code: FULL RESULT: CT HEAD WITHOUT CONTRAST INDICATION: 28-year-old female. Chronic headaches x2 years. Recent spots in vision. TECHNIQUE: Sequential 5 mm axial images were obtained through the brain. In accordance with CT protocol optimization, one or more of the following dose reduction techniques were utilized for this exam: automated exposure control, adjustment of mA and/or KV based on patient size, or use of iterative reconstructive technique. COMPARISON: 08/02/2018. FINDINGS: Ventricular size is normal and stable. Attenuation of cortex and white matter appears normal. In particular, there is no evidence of recent or remote lacunar or cortical infarction. There is no intracranial hemorrhage or abnormal extra-axial fluid collection. There is no mass-effect or midline shift. The skull and skull base appear intact. The middle ear cavities and mastoid air cells appear clear. The imaged paranasal sinuses are essentially clear. Again demonstrated is a deformity of the left nasal bone, consistent with the sequela of old trauma. IMPRESSION: Unremarkable, unenhanced head CT. In particular, there is no evidence of hydrocephalus, hemorrhage, space-occupying mass lesion or other potential cause for headaches.
== END 2019-03-22 17:53 | disposition home or self-care (01) ==
LOC: DI 17:52
PROVIDERS: ATTEND Internal Medicine
DX: G44.89 Other headache syndrome (principal)
CPT/HCPCS: 70450

== ENCOUNTER 2019-04-08 07:00 | Outpatient (CLI) | payer MEDICAID ==
[2019-04-08 17:36] LABS: CANDIDA GROUP DNA NEGATIVE (NEGATIVE); CANDIDA KRUSEI DNA NEGATIVE (NEGATIVE); TRICHOMONAS VAGINALIS DNA NEGATIVE (NEGATIVE)
[2019-04-08 22:18] LABS: TRICHOMONAS VAGINALIS DNA NEGATIVE (NEGATIVE)
== END 2019-04-08 23:59 | disposition home or self-care (01) ==
LOC: LAB.R 07:00
PROVIDERS: ATTEND Obstetrics & Gynecology
DX: L29.9 Pruritus, unspecified (principal); Z20.2 Contact with and (suspected) exposure to infections with a predominantly sexual mode of transmission; N39.0 Urinary tract infection, site not specified
CPT/HCPCS: 87077; 87086; 87181; 87491; 87591; 87661; 87801

== ENCOUNTER 2019-04-08 07:00 | Outpatient (CLI) | payer MEDICAID | END 2019-04-08 23:59 | disposition home or self-care (01) | LOC: LAB.R 07:00 | PROVIDERS: ATTEND Obstetrics & Gynecology | DX: N39.0 Urinary tract infection, site not specified (principal) | CPT/HCPCS: 87086 ==

== ENCOUNTER 2019-05-03 09:00 | Outpatient (CLI) | payer MEDICAID ==
[2019-05-03 18:41] LABS: TRICHOMONAS VAGINALIS DNA NEGATIVE (NEGATIVE)
== END 2019-05-03 23:59 | disposition home or self-care (01) ==
LOC: LAB.R 09:00
PROVIDERS: ATTEND Obstetrics & Gynecology
DX: Z11.3 Encounter for screening for infections with a predominantly sexual mode of transmission (principal); N30.20 Other chronic cystitis without hematuria; B96.89 Other specified bacterial agents as the cause of diseases classified elsewhere
CPT/HCPCS: 87086; 87491; 87591; 87661

== ENCOUNTER 2019-05-03 11:36 | Outpatient (CLI) | payer MEDICAID ==
[2019-05-04 13:21] LABS: HEPATITIS C ANTIBODY NON-REACTIVE (NON-REACTIVE)
[2019-05-06 16:10] LABS: HIV AG/AB 4TH GEN NON-REACTIVE (NON-REACTIVE)
== END 2019-05-03 11:37 | disposition home or self-care (01) ==
LOC: LAB 11:36
PROVIDERS: ATTEND Obstetrics & Gynecology
DX: Z11.3 Encounter for screening for infections with a predominantly sexual mode of transmission (principal); N30.20 Other chronic cystitis without hematuria; B96.89 Other specified bacterial agents as the cause of diseases classified elsewhere
CPT/HCPCS: 36415; 81599; 86317; 86803; 87086; 87389; 87491; 87591; 87661

== ENCOUNTER 2019-05-27 23:17 | Emergency (ER) | payer MEDICAID ==
[2019-05-27 23:25] VITALS: BP 138/92
--- NOTE | 2019-05-27 23:59 | ED Physician Documentation ---
PD HPI LOWER EXT INJURY - Stated complaint Stated Complaint: R FT PX - Chief complaint Chief Complaint: Ext Problem - History obtained from History obtained from: Patient - History of Present Illness PD HPI LOW EXT INJURY LOCATION: Right, Toe (5th) Type of injury: Blunt / blow Where injury occurred: Home Timing - onset: How many weeks ago (3) Timing - duration: Weeks Timing - details: Abrupt onset, Other (now worse) Improved by: Rest, Immobilization Worsened by: Moving, Palpating Associated symptoms: Swelling, Discolored. No: Weakness, Numbness, Tingling Contributing factors: No: Anticoagulated Similar symptoms before: Has not had sx before Recently seen: Not recently seen - Additional information Additional information: 29 y/o female has injured her right 5th toe 3 weeks ago slamming it into a door jam. She was able to walk on this but with pain and the pain has worsened. She re-injured it about 9 days ago and now her pain is so bad that she is getting nauseated when she moves her toe. 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 : Chronic bladder infection, Kidney stones, Other HEENT: None Psych: Anxiety Musculoskeletal: None Derm: None, Other - Past Surgical History Past Surgical History: Yes /BIT GATHERER: Other - Present Medications Home Medications: Ambulatory Orders Medication Instructions Recorded Confirmed Acetaminophen/Cod 300/30 [Tylenol 1 each PO Q4-6H 08/02/18 08/02/18 #3] SUMAtriptan [Imitrex] 25 mg PO BID PRN #10 tablet 08/02/18 Sulfamethoxazole/Trimethoprim 1 each PO BID #10 tablet 09/16/18 [Sulfamethoxazole-Tmp Ds Tablet] - Allergies Allergies/Adverse Reactions: Allergies Allergy/AdvReac Type Severity Reaction Status Date / Time Penicillins Allergy Rash Verified 05/27/19 23:21 - Social History Does the pt smoke?: No Smoking Status: Never smoker Does the pt drink ETOH?: No Does the pt have substance abuse?: No - Immunizations Immunizations are current?: Yes - POLST Patient has POLST: No PD ED PE NORMAL - Vitals Vital signs reviewed: Yes (hypertensive ) - General General: Alert and oriented X 3, Well developed/nourished - HEENT HEENT: Atraumatic, PERRL, EOMI - Respiratory Respiratory: No respiratory distress - Derm Derm: Normal color, Warm and dry, No rash - Extremities Extremities: No deformity, No edema, Other (There is tenderness to the right 5th toe dorsally and the tenderness extends up the 5th metatarsal. Distal n/v is intact. There is not much in the way of discoloration or swelling. ) - Neuro Neuro: No motor deficit, No sensory deficit Eye Opening: Spontaneous Motor: Obeys Commands Verbal: Oriented GCS Score: 15 - Psych Psych: Normal affect, Other (mood is anxious) Results - Vitals Vitals: Vital Signs - 24 hr 05/27/19 23:21 Temperature 36.7 C Heart Rate 67 Respiratory 14 Rate Blood Pressure 138/92 H O2 Saturation 100 Oxygen O2 Source Room air - Rads (name of study) foot Radiology: Prelim report reviewed (Impression: No acute radiographic abnormalities.), EMP read indepedently, See rad report PD MEDICAL DECISION MAKING - ED course Complexity details: reviewed results, re-evaluated patient, considered differential, d/w patient ED course: 29-year-old female with severe pain to her right foot 3 weeks after an initial injury appears agitated and in pain here without much in the way of physical exam findings or x-ray findings. She is placed into a posterior splint and we will provide some pain medication for use tonight only. She is placed onto crutches and I have given her a note at work to indicate she will need to be on crutches for 1 week. Departure - Departure Disposition: 01 Home, Self Care Clinical Impression: Contusion of right foot including toes Qualifiers: Encounter type: initial encounter Qualified Code(s): S90.31XA - Contusion of right foot, initial encounter; S90.121A - Contusion of right lesser toe(s) without damage to nail, initial encounter Instructions: ED Contusion Foot Follow-Up: Kristin Holguin MD [Primary Care Provider] - Forms: Activity restrictions
--- NOTE | 2019-05-28 00:26 | XRAY Report ---
Reason: 5th digit injury Procedure Date: 05/28/2019 Accession Number: [id number] / [id number] Procedure: XR - Foot 3 View RT CPT Code: Final Report FULL RESULT: EXAM: RIGHT FOOT RADIOGRAPHY EXAM DATE: 05/28/2019 12:15 AM. CLINICAL HISTORY: 5th digit injury. COMPARISON: None. TECHNIQUE: 3 views. FINDINGS: Bones: No acute fractures or suspicious bone lesions. Joints: No subluxations. Soft Tissues: Unremarkable. IMPRESSION: No acute radiographic abnormalities. RADIA A
[2019-05-28] MEDS ORDERED: HYDROcod/ACET 5/325 Prepack 4 PO STA (00:45)
== END 2019-05-28 01:32 | disposition home or self-care (01) ==
LOC: ED 23:17
DX: S90.121A Contusion of right lesser toe(s) without damage to nail, initial encounter (principal); S90.31XA Contusion of right foot, initial encounter; W22.09XA Striking against other stationary object, initial encounter; Y92.009 Unspecified place in unspecified non-institutional (private) residence as the place of occurrence of the external cause
CPT/HCPCS: 99283; 99284

== ENCOUNTER 2019-08-09 11:24 | Outpatient (CLI) | payer MEDICAID ==
[2019-08-09 22:08] LABS: CANDIDA GROUP DNA NEGATIVE (NEGATIVE); CANDIDA KRUSEI DNA NEGATIVE (NEGATIVE); TRICHOMONAS VAGINALIS DNA NEGATIVE (NEGATIVE)
[2019-08-09 23:01] LABS: TRICHOMONAS VAGINALIS DNA NEGATIVE (NEGATIVE)
== END 2019-08-09 23:59 | disposition home or self-care (01) ==
LOC: LAB.R 11:24
PROVIDERS: ATTEND Nurse Practitioner Obstetrics & Gynecology
DX: N89.8 Other specified noninflammatory disorders of vagina (principal); L29.8 Other pruritus; Z20.2 Contact with and (suspected) exposure to infections with a predominantly sexual mode of transmission
CPT/HCPCS: 81599; 87086; 87491; 87591; 87661; 87801

== ENCOUNTER 2019-12-05 08:00 | Outpatient (CLI) | payer MEDICAID ==
[2019-12-05 20:21] LABS: CANDIDA GROUP DNA NEGATIVE (NEGATIVE); CANDIDA KRUSEI DNA NEGATIVE (NEGATIVE); TRICHOMONAS VAGINALIS DNA NEGATIVE (NEGATIVE)
[2019-12-05 21:29] LABS: TRICHOMONAS VAGINALIS DNA NEGATIVE (NEGATIVE)
== END 2019-12-05 23:59 | disposition home or self-care (01) ==
LOC: LAB.R 08:00
PROVIDERS: ATTEND Obstetrics & Gynecology
DX: N89.8 Other specified noninflammatory disorders of vagina (principal)
CPT/HCPCS: 87077; 87086; 87181; 87491; 87591; 87661; 87801

== ENCOUNTER 2020-01-02 08:00 | Outpatient (CLI) | payer MEDICAID ==
[2020-01-02 16:47] LABS: BILIRUBIN,URINE NEGATIVE (NEGATIVE); GLUCOSE, URINE (UA) NEGATIVE (NEGATIVE); KETONES,URINE (UA) NEGATIVE (NEGATIVE); LEUKOCYTE ESTERASE, URINE MODERATE (NEGATIVE); NITRITE,URINE POSITIVE (NEGATIVE); OCCULT BLOOD,URINE TRACE-INTA (NEGATIVE); PROTEIN,URINE 100 mg/dL (NEGATIVE); UROBILINOGEN,URINE 0.2 (NORMAL) E.U./dL (NORMAL)
[2020-01-02 16:50] LABS: CLARITY,URINE CLEAR (CLEAR)
[2020-01-02 17:00] LABS: WBC CLUMPS,URINE PRESENT
[2020-01-02 17:01] LABS: BACTERIA,URINE Many /HPF (None Seen); RBC,URINE 0-5 /HPF (0-5); SQUAMOUS EPITHELIAL CELL,UR NONE SEEN (<= Few)
[2020-01-02 21:18] LABS: TRICHOMONAS VAGINALIS DNA NEGATIVE (NEGATIVE)
== END 2020-01-02 08:01 | disposition home or self-care (01) ==
LOC: LAB.R 08:00
PROVIDERS: ATTEND Obstetrics & Gynecology
DX: N30.80 Other cystitis without hematuria (principal); B96.89 Other specified bacterial agents as the cause of diseases classified elsewhere; Z11.3 Encounter for screening for infections with a predominantly sexual mode of transmission
CPT/HCPCS: 81001; 81003; 87077; 87086; 87181; 87491; 87591; 87661

== ENCOUNTER 2020-02-06 07:00 | Outpatient (CLI) | payer MEDICAID ==
[2020-02-06 20:02] LABS: TRICHOMONAS VAGINALIS DNA NEGATIVE (NEGATIVE)
[2020-02-06 20:50] LABS: CANDIDA GROUP DNA NEGATIVE (NEGATIVE); CANDIDA KRUSEI DNA NEGATIVE (NEGATIVE); TRICHOMONAS VAGINALIS DNA NEGATIVE (NEGATIVE)
== END 2020-02-06 23:59 | disposition home or self-care (01) ==
LOC: LAB.R 07:00
PROVIDERS: ATTEND Obstetrics & Gynecology
DX: Z11.3 Encounter for screening for infections with a predominantly sexual mode of transmission (principal); N18.9 Chronic kidney disease, unspecified; L29.8 Other pruritus
CPT/HCPCS: 36415; 81599; 86592; 87086; 87181; 87340; 87389; 87491; 87591; 87661; 87801

== ENCOUNTER 2020-02-06 11:34 | Outpatient (CLI) | payer MEDICAID ==
[2020-02-07 09:57] LABS: HIV AG/AB 4TH GEN NON-REACTIVE (NON-REACTIVE)
[2020-02-07 13:11] LABS: HEPATITIS B SURFACE ANTIGEN NON-REACTIVE (NON-REACTIVE)
== END 2020-02-06 11:35 | disposition home or self-care (01) ==
LOC: LAB 11:34
PROVIDERS: ATTEND Obstetrics & Gynecology
DX: Z11.3 Encounter for screening for infections with a predominantly sexual mode of transmission (principal)
CPT/HCPCS: 36415; 81599; 87340; 87389

== ENCOUNTER 2020-03-23 09:55 | Outpatient (CLI) | payer MEDICAID ==
[2020-03-23 22:09] LABS: TRICHOMONAS VAGINALIS DNA NEGATIVE (NEGATIVE)
== END 2020-03-23 23:59 | disposition home or self-care (01) ==
LOC: LAB.R 09:55
PROVIDERS: ATTEND Advanced Practice Midwife
DX: Z11.3 Encounter for screening for infections with a predominantly sexual mode of transmission (principal)
CPT/HCPCS: 82570; 83497; 87491; 87591; 87661

== ENCOUNTER 2020-05-13 08:00 | Outpatient (CLI) | payer MEDICAID ==
[2020-05-13 21:54] LABS: CANDIDA GROUP DNA NEGATIVE (NEGATIVE); CANDIDA KRUSEI DNA NEGATIVE (NEGATIVE); TRICHOMONAS VAGINALIS DNA NEGATIVE (NEGATIVE)
[2020-05-13 23:07] LABS: TRICHOMONAS VAGINALIS DNA NEGATIVE (NEGATIVE)
== END 2020-05-13 23:59 | disposition home or self-care (01) ==
LOC: LAB.R 08:00
PROVIDERS: ATTEND Obstetrics & Gynecology
DX: R10.9 Unspecified abdominal pain (principal); Z20.2 Contact with and (suspected) exposure to infections with a predominantly sexual mode of transmission; N18.9 Chronic kidney disease, unspecified
CPT/HCPCS: 87086; 87491; 87591; 87661; 87801

== ENCOUNTER 2020-08-17 22:43 | Emergency (ER) | payer MEDICAID ==
[2020-08-17 23:22] LABS: BASOPHILS # (AUTO) 0.1 10^3/uL (0.0-0.1); BASOPHILS % (AUTO) 0.6 %; EOSINOPHILS # (AUTO) 0.2 10^3/uL (0.0-0.7); EOSINOPHILS % (AUTO) 2.1 %; HCT - HEMATOCRIT 39.7 % (37.0-47.0); HGB - HEMOGLOBIN 12.9 g/dL (12.0-16.0); LYMPHOCYTES % (AUTO) 26.1 %; MEAN CORPUSCULAR HEMOGLOBIN 30.6 pg (27.0-31.0); MEAN CORPUSCULAR HGB CONC 32.5 g/dL (32.0-36.0); MEAN CORPUSCULAR VOLUME 94.1 fL (81.0-99.0); MEAN PLATELET VOLUME 9.9 fL (7.9-10.8); MONOCYTES # (AUTO) 0.7 10^3/uL (0.0-1.0); NEUTROPHILS # (AUTO) 4.8 10^3/uL (1.5-6.6); NEUTROPHILS % (AUTO) 61.9 %; PLT - PLATELET COUNT 211 10^3/uL (130-450); RED BLOOD COUNT 4.22 10^6/uL (4.20-5.40); RED CELL DISTRIBUTION WIDTH 12.4 % (12.0-15.0); WHITE BLOOD COUNT 7.7 x10^3/uL (4.8-10.8)
--- NOTE | 2020-08-17 23:33 | ED Physician Documentation ---
PD HPI ABD PAIN - Stated complaint Stated Complaint: ABD PX - Chief complaint Chief Complaint: Abd Pain - History obtained from History obtained from: Patient - History of Present Illness Timing - onset: Chronic Timing - details: Waxing and waning Pain level max: 8 Pain level now: 4 Quality: Pain Location: Other (bilateral flanks radiating to lower abdomen and suprapubic region) Improved by: Other (nothing) Worsened by: Other (no exacerbating factors) Associated symptoms: Nausea, Vomiting. No: Fever Similar symptoms before: Diagnosis (CKD) - Additional information Additional information: patient c/o bilateral flank pain that radiates around to lower mid abdomen. She says this is related to her chronic kidney disease and she says she has had this pain for at least the past year. She perceives decreasing urine output over an unclear time frame, and she feels that for the past few days, she has to bear down in order to urinate. She says she has had nausea and vomiting over the past year as well. She says she has had fevers at home over unclear time frame; she has not taken her temperature; she says she feels hot when going to bed and wakes in the morning with diaphoresis. Her nuclear powerplant mechanic helper is Dr. Mancera in [place]. She says she has had chronic kidney disease, unknown cause, for 9 years and was told several years ago by her nuclear powerplant mechanic helper that she will likely need hemodialysis within five years of diagnosis. Review of Systems Constitutional: reports: Chills, Fatigue, Sweats. denies: Fever (subjective but not measured) Cardiac: reports: Reviewed and negative Respiratory: reports: Reviewed and negative GI: reports: Abdominal Pain, Nausea, Vomiting. 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 : Chronic bladder infection, Kidney stones, Other HEENT: None Psych: Anxiety Musculoskeletal: None Derm: None, Other - Past Surgical History Past Surgical History: Yes /MANAGER ELECTRICAL: Other - Present Medications Home Medications: Ambulatory Orders Medication Instructions Recorded Confirmed Acetaminophen/Cod 300/30 [Tylenol 1 each PO Q4-6H 08/02/18 08/02/18 #3] SUMAtriptan [Imitrex] 25 mg PO BID PRN #10 tablet 08/02/18 Sulfamethoxazole/Trimethoprim 1 each PO BID #10 tablet 09/16/18 [Sulfamethoxazole-Tmp Ds Tablet] oxyCODONE [Roxicodone] 5 mg PO Q6H PRN #10 tablet 08/18/20 - Allergies Allergies/Adverse Reactions: Allergies Allergy/AdvReac Type Severity Reaction Status Date / Time Penicillins Allergy Rash Verified 08/17/20 22:57 - Social History Does the pt smoke?: No Smoking Status: Never smoker Does the pt drink ETOH?: No Does the pt have substance abuse?: No - Immunizations Immunizations are current?: Yes - POLST Patient has POLST: No PD ED PE NORMAL - Vitals Vital signs reviewed: Yes - General General: Alert and oriented X 3, No acute distress (mostly NAD but appears to have episodic painful distress lasting 10-15 seconds), Well developed/nourished - HEENT HEENT: Moist mucous membranes - Neck Neck: Supple, no meningeal sign - Cardiac Cardiac: RRR, No murmur - Respiratory Respiratory: No respiratory distress, Clear bilaterally - Abdomen Abdomen: Soft, Non tender, Non distended - Back Back: No CVA TTP - Derm Derm: Normal color, Warm and dry Results - Vitals Vitals: Vital Signs - 24 hr 08/17/20 08/18/20 22:51 00:37 Temperature 36.8 C 36.9 C Heart Rate 90 89 Respiratory 16 18 Rate Blood Pressure 152/112 H 133/84 H O2 Saturation 100 100 Oxygen O2 Source Room air - Labs Labs: Laboratory Tests 08/17/20 08/17/20 08/17/20 23:16 23:16 23:31 WBC 7.7 RBC 4.22 Hgb 12.9 Hct 39.7 MCV 94.1 MCH 30.6 MCHC 32.5 RDW 12.4 Plt Count 211 MPV 9.9 Neut # (Auto) 4.8 Lymph # (Auto) 2.0 Travis # (Auto) 0.7 Eos # (Auto) 0.2 Baso # (Auto) 0.1 Absolute Nucleated RBC 0.00 Nucleated RBC % 0.0 Sodium 142 Potassium 4.4 Chloride 110 Carbon Dioxide 22 Anion Gap 10.0 BUN 40 H Creatinine 2.6 H Estimated GFR (MDRD) 21 L Glucose 95 Calcium 8.9 Total Bilirubin 0.5 AST 15 ALT 12 Alkaline Phosphatase 76 Total Protein 6.7 Albumin 3.8 Globulin 2.9 Albumin/Globulin Ratio 1.3 Lipase 46 Urine Color YELLOW Urine Clarity CLEAR Urine pH 6.0 Ur Specific [place] 1.020 Urine Protein 100 H Urine Glucose (UA) NEGATIVE Urine Ketones NEGATIVE Urine Occult Blood SMALL H Urine Nitrite NEGATIVE Urine Bilirubin NEGATIVE Urine Urobilinogen 0.2 (NORMAL) Ur Leukocyte Esterase NEGATIVE Urine RBC 0-5 Urine WBC 0-3 Ur Squamous Epith Cells MANY Squamous H Urine Bacteria Rare Urine Mucus Moderate Strands Ur Microscopic Review INDICATED Urine Culture Comments NOT INDICATED Urine HCG, Qual 08/17/20 23:31 WBC RBC Hgb Hct MCV MCH MCHC RDW Plt Count MPV Neut # (Auto) Lymph # (Auto) Travis # (Auto) Eos # (Auto) Baso # (Auto) Absolute Nucleated RBC Nucleated RBC % Sodium Potassium Chloride Carbon Dioxide Anion Gap BUN Creatinine Estimated GFR (MDRD) Glucose Calcium Total Bilirubin AST ALT Alkaline Phosphatase Total Protein Albumin Globulin Albumin/Globulin Ratio Lipase Urine Color Urine Clarity Urine pH Ur Specific [place] Urine Protein Urine Glucose (UA) Urine Ketones Urine Occult Blood Urine Nitrite Urine Bilirubin Urine Urobilinogen Ur Leukocyte Esterase Urine RBC Urine WBC Ur Squamous Epith Cells Urine Bacteria Urine Mucus Ur Microscopic Review Urine Culture Comments Urine HCG, Qual NEGATIVE PD MEDICAL DECISION MAKING - ED course Complexity details: reviewed old records, reviewed results, re-evaluated britney ent, considered differential, d/w patient ED course: Patient presents with chronic abdominal and flank pain (says it has been ongoing for at least a year) as well as chronic nausea, vomiting. She has documented CKD. Her lab work is mostly reassuring tonight, with normal CBC, electrolytes, and LFTs. However, it is concerning that her BUN, creatinine, and GFR have all worsened since previous labs and all are worse than any previous results available to me on [email or web address]. Her UA has blood on ke but not micro, and protein; in discussing results with patient, she says the urinalysis findings (including blood on macro but not micro) is typical for her UA. She says she is confident that she is well-hydrated; despite describing ongoing nausea and vomiting, she says she consistently maintains good fluid intake (avoiding sumanth and juices) and does not feel dehydrated (compared to episodes in the past when she did). Her specific gravity on UA would suggest against dehydration. I offered IV fluids, as this might improve her kidney function tests to some extent, but she declines for these reasons. She is driving home; given percocet "take home" and rx for short course of oxycodone. She is nontender on abdominal exam and she says this is a chronic pain, albeit worse than typical for her. I provided copies of her blood test results and UA and instructed her to contact her nuclear powerplant mechanic helper's office with these results to inquire as to whether she should be reevaluated sooner than her appointment scheduled for next month. Patient's test results are not c/w infectious process such as UTI or pyelonephritis. The chronic nature of her pain, and bilateral location, are inconsistent with renal colic. Her exam and chronic nature of the pain do not suggest acute/emergent abdominal process such as appendicitis, diverticulitis, perforated viscus. I instructed her to have a working thermometer at home so that she can measure her temperature at the times when she feels like she has a fever, and to return to ED or contact her primary care provider if temperature is 100.4 or higher. She is also to return to ED if she is worse in any way such as worsening pain or intractable vomiting. Departure - Departure Disposition: 01 Home, Self Care Clinical Impression: Chronic abdominal pain, Renal insufficiency Condition: Good Instructions: ED Abdominal Pain Unkn Cause, ED Insufficiency Renal Follow-Up: Kristin Holguin MD [Primary Care Provider] - Prescriptions: oxyCODONE [Roxicodone] 5 mg PO Q6H PRN #10 tablet PRN Reason: Pain Comments: Follow up with your nuclear powerplant mechanic helper; I recommend that you contact them in the morning and make them aware of lee's blood test results (the BUN, creatinine, and GFR in particular). These tests are worse than the previous results available to me on my system, but your nuclear powerplant mechanic helper might have different/more recent results for comparison. Discharge Date/Time: 08/18/20 00:50
[2020-08-17 23:35] LABS: ALBUMIN 3.8 g/dL (3.2-5.5); ALBUMIN/GLOBULIN RATIO 1.3 (1.0-2.2); BILIRUBIN,TOTAL 0.5 mg/dL (0.2-1.0); CALCIUM 8.9 mg/dL (8.5-10.3); CREATININE 2.6 mg/dL (0.4-1.0); POTASSIUM 4.4 mmol/L (3.5-5.0); TOTAL PROTEIN 6.7 g/dL (6.7-8.2)
[2020-08-17 23:39] LABS: BILIRUBIN,URINE NEGATIVE (NEGATIVE); GLUCOSE, URINE (UA) NEGATIVE (NEGATIVE); KETONES,URINE (UA) NEGATIVE (NEGATIVE); LEUKOCYTE ESTERASE, URINE NEGATIVE (NEGATIVE); NITRITE,URINE NEGATIVE (NEGATIVE); OCCULT BLOOD,URINE SMALL (NEGATIVE); PROTEIN,URINE 100 mg/dL (NEGATIVE); UROBILINOGEN,URINE 0.2 (NORMAL) E.U./dL (NORMAL)
[2020-08-17 23:40] LABS: HCG UR QUAL NEGATIVE
[2020-08-17 23:41] LABS: CLARITY,URINE CLEAR (CLEAR)
[2020-08-17 23:46] LABS: RBC,URINE 0-5 /HPF (0-5); WBC,URINE 0-3 /HPF (0-5)
[2020-08-17 23:47] LABS: BACTERIA,URINE Rare /HPF (None Seen); MUCUS,URINE Moderate Strands; SQUAMOUS EPITHELIAL CELL,UR MANY Squamous (<= Few)
[2020-08-18] MEDS ORDERED: oxyCODONE/ACET 5/325 Prepack 4 PO STA (00:16)
[2020-08-18 00:37] VITALS: BP 133/84
== END 2020-08-18 00:50 | disposition home or self-care (01) ==
LOC: ED 22:43
DX: R10.30 Lower abdominal pain, unspecified (principal); G89.29 Other chronic pain; N18.9 Chronic kidney disease, unspecified
CPT/HCPCS: 36415; 80053; 81001; 81003; 81025; 83690; 85025; 87086; 99283; 99284

== ENCOUNTER 2020-08-20 08:00 | Outpatient (CLI) | payer MEDICAID ==
[2020-08-20 20:00] LABS: BACTERIAL VAGINOSIS DNA NEGATIVE (NEGATIVE); CANDIDA GLABRATA DNA NEGATIVE (NEGATIVE); CANDIDA GROUP DNA POSITIVE (NEGATIVE); CANDIDA KRUSEI DNA NEGATIVE (NEGATIVE); TRICHOMONAS VAGINALIS DNA NEGATIVE (NEGATIVE)
[2020-08-20 20:45] LABS: CHLAMYDIA TRACHOMATIS DNA NEGATIVE (NEGATIVE); NEISSERIA GONORRHOEAE DNA NEGATIVE (NEGATIVE); TRICHOMONAS VAGINALIS DNA NEGATIVE (NEGATIVE)
== END 2020-08-20 23:59 | disposition home or self-care (01) ==
LOC: LAB.R 08:00
PROVIDERS: ATTEND Obstetrics & Gynecology
DX: L29.8 Other pruritus (principal)
CPT/HCPCS: 87491; 87591; 87661; 87801

== ENCOUNTER 2020-09-13 19:33 | Emergency (ER) | payer MEDICAID ==
[2020-09-13] MEDS ORDERED: NALBUPHINE 10 MG/ML AMP IVP STA (20:04)
[2020-09-13] MEDS ORDERED: ONDANSETRON 4 MG/2 ML VIAL IVP STA (20:04)
[2020-09-13] MEDS ORDERED: SODIUM CHLORIDE 0.9% 1,000 ML IV STA (20:04)
[2020-09-13 20:12] LABS: BILIRUBIN,URINE NEGATIVE (NEGATIVE); GLUCOSE, URINE (UA) NEGATIVE (NEGATIVE); KETONES,URINE (UA) NEGATIVE (NEGATIVE); LEUKOCYTE ESTERASE, URINE NEGATIVE (NEGATIVE); NITRITE,URINE NEGATIVE (NEGATIVE); OCCULT BLOOD,URINE TRACE-INTA (NEGATIVE); PROTEIN,URINE >=300 mg/dL (NEGATIVE); UROBILINOGEN,URINE 0.2 (NORMAL) E.U./dL (NORMAL)
[2020-09-13 20:15] LABS: CLARITY,URINE CLEAR (CLEAR); HCG UR QUAL NEGATIVE
[2020-09-13 20:22] LABS: AMORPHOUS SEDIMENT,UR Rare /LPF; BACTERIA,URINE Few /HPF (None Seen); RBC,URINE 0-5 /HPF (0-5); SQUAMOUS EPITHELIAL CELL,UR MOD Squamous (<= Few); WBC,URINE 0-3 /HPF (0-5)
[2020-09-13 20:37] LABS: BASOPHILS % (AUTO) 0.2 %; EOSINOPHILS # (AUTO) 0.5 10^3/uL (0.0-0.7); EOSINOPHILS % (AUTO) 5.4 %; LYMPHOCYTES # (AUTO) 1.6 10^3/uL (1.5-3.5); LYMPHOCYTES % (AUTO) 17.8 %; MEAN CORPUSCULAR HEMOGLOBIN 30.6 pg (27.0-31.0); MEAN CORPUSCULAR HGB CONC 33.3 g/dL (32.0-36.0); MEAN CORPUSCULAR VOLUME 91.9 fL (81.0-99.0); MEAN PLATELET VOLUME 9.9 fL (7.9-10.8); MONOCYTES # (AUTO) 0.4 10^3/uL (0.0-1.0); MONOCYTES % (AUTO) 4.9 %; NEUTROPHILS # (AUTO) 6.4 10^3/uL (1.5-6.6); NEUTROPHILS % (AUTO) 71.6 %; PLT - PLATELET COUNT 228 10^3/uL (130-450); RED BLOOD COUNT 4.57 10^6/uL (4.20-5.40); RED CELL DISTRIBUTION WIDTH 12.4 % (12.0-15.0); WHITE BLOOD COUNT 8.9 x10^3/uL (4.8-10.8)
--- NOTE | 2020-09-13 20:45 | ED Physician Documentation ---
History of Present Illness - Stated complaint Stated Complaint: ABD PX - Chief complaint Chief Complaint: Abd Pain - History obtained from History obtained from: Patient - History of Present Illness Timing: Today Pain level max: 10 Pain level now: 10 - Additonal information Additional information: Patient is a 30-year-old female who presents to the emergency department with bilateral flank and back pain. She states is been ongoing for several years, comes and goes. Nothing seems to make it better or worse. She states that it is secondary to her chronic kidney disease. She states occasionally she feels warm and has fevers once per week. Does not have any new urinary symptoms. She states she has vomiting intermittently as well. None currently. Denies any possibility of . Was seen here several weeks ago for same. 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 No diarrhea. No constipation. Review of Systems Ten Systems: 10 systems reviewed and negative Constitutional: reports: Fever (Intermittently, none currently). denies: Chills Nose: denies: Rhinorrhea / runny nose, Congestion Respiratory: denies: Cough GI: reports: Nausea, Vomiting. 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 : Chronic bladder infection, Kidney stones, Other HEENT: None Psych: Anxiety Musculoskeletal: None Derm: None, Other - Past Surgical History Past Surgical History: Yes /FRONT OFFICE ATTENDANT: Other - Present Medications Home Medications: Ambulatory Orders Medication Instructions Recorded Confirmed Acetaminophen/Cod 300/30 [Tylenol 1 each PO Q4-6H 08/02/18 08/02/18 #3] SUMAtriptan [Imitrex] 25 mg PO BID PRN #10 tablet 08/02/18 Sulfamethoxazole/Trimethoprim 1 each PO BID #10 tablet 09/16/18 [Sulfamethoxazole-Tmp Ds Tablet] oxyCODONE [Roxicodone] 5 mg PO Q6H PRN #10 tablet 08/18/20 - Allergies Allergies/Adverse Reactions: Allergies Allergy/AdvReac Type Severity Reaction Status Date / Time Penicillins Allergy Rash Verified 09/13/20 19:52 - Social History Does the pt smoke?: No Smoking Status: Never smoker Does the pt drink ETOH?: No Does the pt have substance abuse?: No - Immunizations Immunizations are current?: Yes - POLST Patient has POLST: No PD ED PE NORMAL - Vitals Vital signs reviewed: Yes - General General: Alert and oriented X 3, No acute distress - HEENT HEENT: Moist mucous membranes - Neck Neck: Supple, no meningeal sign - Cardiac Cardiac: RRR, Strong equal pulses - Respiratory Respiratory: No respiratory distress, Clear bilaterally - Abdomen Abdomen: Soft, Non distended, Other (Mild diffuse tenderness without peritoneal signs) - Back Back: No CVA TTP, No spinal TTP - Derm Derm: Warm and dry - Neuro Neuro: Alert and oriented X 3 - Psych Psych: Other (Anxious, rapid speech.) Results - Vitals Vitals: Vital Signs - 24 hr 09/13/20 09/13/20 19:38 21:03 Temperature 36.7 C Heart Rate 104 H 73 Respiratory 16 16 Rate Blood Pressure 136/112 H 157/105 H O2 Saturation 100 97 Oxygen O2 Source Room air - Labs Labs: Laboratory Tests 09/13/20 09/13/20 09/13/20 19:48 19:48 20:32 WBC 8.9 RBC 4.57 Hgb 14.0 Hct 42.0 MCV 91.9 MCH 30.6 MCHC 33.3 RDW 12.4 Plt Count 228 MPV 9.9 Neut # (Auto) 6.4 Lymph # (Auto) 1.6 [place] # (Auto) 0.4 Eos # (Auto) 0.5 Baso # (Auto) 0.0 Absolute Nucleated RBC 0.00 Nucleated RBC % 0.0 Sodium Potassium Chloride Carbon Dioxide Anion Gap BUN Creatinine Estimated GFR (MDRD) Glucose Calcium Total Bilirubin AST ALT Alkaline Phosphatase Total Protein Albumin Globulin Albumin/Globulin Ratio Lipase Urine Color LIGHT YELLOW Urine Clarity CLEAR Urine pH 7.0 Ur Specific [place] 1.020 Urine Protein >=300 H Urine Glucose (UA) NEGATIVE Urine Ketones NEGATIVE Urine Occult Blood TRACE-INTA Urine Nitrite NEGATIVE Urine Bilirubin NEGATIVE Urine Urobilinogen 0.2 (NORMAL) Ur Leukocyte Esterase NEGATIVE Urine RBC 0-5 Urine WBC 0-3 Ur Squamous Epith Cells MOD Squamous H Amorphous Sediment Rare Urine Bacteria Few Ur Microscopic Review INDICATED Urine Culture Comments NOT INDICATED Urine HCG, Qual NEGATIVE 09/13/20 20:32 WBC RBC Hgb Hct MCV MCH MCHC RDW Plt Count MPV Neut # (Auto) Lymph # (Auto) [place] # (Auto) Eos # (Auto) Baso # (Auto) Absolute Nucleated RBC Nucleated RBC % Sodium 139 Potassium 3.5 Chloride 111 Carbon Dioxide 18 L Anion Gap 10.0 BUN 23 H Creatinine 2.9 H Estimated GFR (MDRD) 19 L Glucose 110 H Calcium 9.2 Total Bilirubin 0.6 AST 15 ALT 13 Alkaline Phosphatase 79 Total Protein 7.0 Albumin 3.8 Globulin 3.2 Albumin/Globulin Ratio 1.2 Lipase 26 Urine Color Urine Clarity Urine pH Ur Specific [place] Urine Protein Urine Glucose (UA) Urine Ketones Urine Occult Blood Urine Nitrite Urine Bilirubin Urine Urobilinogen Ur Leukocyte Esterase Urine RBC Urine WBC Ur Squamous Epith Cells Amorphous Sediment Urine Bacteria Ur Microscopic Review Urine Culture Comments Urine HCG, Qual PD MEDICAL DECISION MAKING - ED course Complexity details: reviewed old records, reviewed results, re-evaluated patient, considered differential, d/w patient ED course: No acute findings on laboratory testing and urinalysis. Patient was reluctant to take any medications. Was given a dose of Nubain and Zofran. Patient is continuing to have pain. Her GFR will not allow IV contrast, had a recent ultrasound but no recent CAT scans. We will do a Non-con CT. Patient signed out to the oncoming emergency department physician, Dr. Nolasco, for repeat evaluation and follow-up on CT findings. This document was made in part using voice recognition software. While efforts are made to proofread this document, sound alike and grammatical errors may occur. Departure - Departure Clinical Impression: Chronic abdominal pain Condition: Stable
[2020-09-13 20:50] LABS: ALBUMIN 3.8 g/dL (3.2-5.5); ALBUMIN/GLOBULIN RATIO 1.2 (1.0-2.2); BILIRUBIN,TOTAL 0.6 mg/dL (0.2-1.0); CALCIUM 9.2 mg/dL (8.5-10.3); CREATININE 2.9 mg/dL (0.4-1.0); POTASSIUM 3.5 mmol/L (3.5-5.0)
[2020-09-13] MEDS: LORazepam 2 MG/ML VIAL IVP STA ×2 (21:25→21:31)
[2020-09-13 23:54] VITALS: BP 160/100
--- NOTE | 2020-09-14 00:58 | ED Physician Documentation ---
ED Addendum - Addendum Addendum: 09/14/20 patient was signed out to me by the prior physician. Pending were CT with result and reassessment. The patient declined the CT scans as she had had one relatively recently. She declined any further medications and asked that she just be discharged home. Nursing will give her a work note for couple of days. She is discharged in stable condition.
--- OUTSIDE RECORDS SUMMARY | 2020-09-16 02:47 | EXTERNAL MEDICAL SUMMARY RPT | Continuity of Care Document ---
:1990 Demographics Phone Unavailable Preferred Language [place] Marital Status Unknown Taoist Affiliation Unknown Race Unknown Ethnic Group Unknown Author Organization [facility] Address [address] [place] [address] Phone Care Team Providers Name Role Phone Kanjo Unavailable Unavailable Problems date description facility [id number] Chronic kidney disease, stage 4 (severe ) [facility] Social History date description facility [id number]
== END 2020-09-14 00:10 | disposition home or self-care (01) ==
LOC: ED 19:33
DX: R10.9 Unspecified abdominal pain (principal)
CPT/HCPCS: 36415; 80053; 81001; 81025; 83690; 85025; 96361; 96374; 96375; 99282; 99283; J2300; 81003; 87086

== ENCOUNTER 2020-11-06 08:00 | Outpatient (CLI) | payer MEDICAID ==
[2020-11-06 15:48] LABS: BILIRUBIN,URINE NEGATIVE (NEGATIVE); GLUCOSE, URINE (UA) NEGATIVE (NEGATIVE); KETONES,URINE (UA) NEGATIVE (NEGATIVE); LEUKOCYTE ESTERASE, URINE NEGATIVE (NEGATIVE); NITRITE,URINE NEGATIVE (NEGATIVE); OCCULT BLOOD,URINE TRACE-INTA (NEGATIVE); PROTEIN,URINE 100 mg/dL (NEGATIVE); UROBILINOGEN,URINE 0.2 (NORMAL) E.U./dL (NORMAL)
[2020-11-06 15:58] LABS: BACTERIA,URINE Rare /HPF (None Seen); CLARITY,URINE CLEAR (CLEAR); RBC,URINE 0-5 /HPF (0-5); SQUAMOUS EPITHELIAL CELL,UR FEW Squamous (<= Few); WBC,URINE 0-3 /HPF (0-5)
[2020-11-06 20:39] LABS: BACTERIAL VAGINOSIS DNA NEGATIVE (NEGATIVE); CANDIDA GLABRATA DNA NEGATIVE (NEGATIVE); CANDIDA GROUP DNA NEGATIVE (NEGATIVE); CANDIDA KRUSEI DNA NEGATIVE (NEGATIVE); TRICHOMONAS VAGINALIS DNA NEGATIVE (NEGATIVE)
[2020-11-06 21:21] LABS: CHLAMYDIA TRACHOMATIS DNA NEGATIVE (NEGATIVE); NEISSERIA GONORRHOEAE DNA NEGATIVE (NEGATIVE); TRICHOMONAS VAGINALIS DNA NEGATIVE (NEGATIVE)
== END 2020-11-06 23:59 | disposition home or self-care (01) ==
LOC: LAB.WC 08:00
PROVIDERS: ATTEND Nurse Practitioner Obstetrics & Gynecology
DX: R39.9 Unspecified symptoms and signs involving the genitourinary system (principal); L29.8 Other pruritus
CPT/HCPCS: 81001; 87086; 87491; 87591; 87661; 87801

== ENCOUNTER 2021-04-29 11:45 | Outpatient (CLI) | payer MEDICAID ==
[2021-04-30 09:53] LABS: BILIRUBIN,URINE NEGATIVE (NEGATIVE); GLUCOSE, URINE (UA) NEGATIVE (NEGATIVE); KETONES,URINE (UA) NEGATIVE (NEGATIVE); LEUKOCYTE ESTERASE, URINE NEGATIVE (NEGATIVE); NITRITE,URINE NEGATIVE (NEGATIVE); OCCULT BLOOD,URINE NEGATIVE (NEGATIVE); PROTEIN,URINE 100 mg/dL (NEGATIVE); UROBILINOGEN,URINE 0.2 (NORMAL) E.U./dL (NORMAL)
[2021-04-30 09:54] LABS: CLARITY,URINE CLOUDY (CLEAR)
[2021-04-30 10:58] LABS: BACTERIA,URINE Many /HPF (None Seen); RBC,URINE 0-5 /HPF (0-5); SQUAMOUS EPITHELIAL CELL,UR RARE Squamous (<= Few); WBC,URINE >25 /HPF (0-5)
== END 2021-04-29 11:46 | disposition home or self-care (01) ==
LOC: LAB 11:45 → LAB.R 11:46
PROVIDERS: ATTEND Obstetrics & Gynecology
DX: N30.90 Cystitis, unspecified without hematuria (principal)
CPT/HCPCS: 81001; 87086; 87181

== ENCOUNTER 2021-07-13 22:23 | Emergency (ER) | payer MEDICAID ==
[2021-07-13 22:38] VITALS: BP 157/98
[2021-07-14] MEDS ORDERED: predniSONE 20 MG TABLET PO STA (00:28)
--- NOTE | 2021-07-14 00:30 | ED Physician Documentation ---
PD HPI HEENT - Stated complaint Stated Complaint: R EAR PX - Chief complaint Chief Complaint: Heent - History obtained from History obtained from: Patient - Additional information Additional information: The patient comes to the emergency department with chief complaint of right ear pain. She states she had a cold for several days and that this went away, but then her ear started to hurt. She states she gets throbbing, popping feeling in her ear. No fevers or chills. No decrease in hearing. No current URI symptoms or any sort of congestion. No other complaints at this time. Review of Systems Ten Systems: 10 systems reviewed and negative Constitutional: reports: Reviewed and negative Eyes: reports: Reviewed and negative Ears: reports: Ear pain Nose: reports: Reviewed and negative Throat: reports: Reviewed and negative Cardiac: reports: Reviewed and negative Respiratory: reports: Reviewed and negative GI: reports: Reviewed and negative : reports: Reviewed and negative Skin: reports: Reviewed and negative Musculoskeletal: reports: Reviewed and negative Neurologic: reports: Reviewed and negative Psychiatric: reports: Reviewed and negative Endocrine: reports: Reviewed and negative Immunocompromised: reports: Reviewed and negative PD PAST MEDICAL HISTORY - Past Medical History Cardiovascular: None Respiratory: None Neuro: None Endocrine/Autoimmune: None GI: None 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: Ovarian cysts : Chronic bladder infection, Kidney stones, Other HEENT: None Psych: Anxiety Musculoskeletal: None Derm: None, Other - Past Surgical History Past Surgical History: Yes /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: Other - Present Medications Home Medications: Ambulatory Orders Medication Instructions Recorded Confirmed Ibuprofen [Motrin] 1 tablet PO Q8H PRN #30 tablet 07/14/21 - Allergies Allergies/Adverse Reactions: Allergies Allergy/AdvReac Type Severity Reaction Status Date / Time Penicillins Allergy Rash Verified 09/13/20 19:52 - Social History Does the pt smoke?: No Smoking Status: Never smoker Does the pt drink ETOH?: No Does the pt have substance abuse?: No - Immunizations Immunizations are current?: Yes - POLST Patient has POLST: No PD ED PE NORMAL - Vitals Vital signs reviewed: Yes - General General: Alert and oriented X 3, No acute distress, Well developed/nourished - HEENT HEENT: Atraumatic, PERRL, EOMI, Moist mucous membranes, Other (Both tympanic membranes are clear and nonerythematous, though there is mild amount of fluid deep to the right tympanic membrane. A small, focused area of erythematous skin is noted adjacent to the tympanic membrane In the external auditory canal. No swelling or discharge.) - Cardiac Cardiac: RRR, No murmur - Respiratory Respiratory: Clear bilaterally - Abdomen Abdomen: Normal bowel sounds, Soft, Non tender, Non distended - Derm Derm: Warm and dry - Extremities Extremities: No deformity - Neuro Neuro: Alert and oriented X 3 - Psych Psych: Normal mood, Normal affect Results - Vitals Vitals: Vital Signs - 24 hr 07/13/21 22:33 Temperature 35.9 C L Heart Rate 83 Respiratory 18 Rate Blood Pressure 157/98 H O2 Saturation 97 Oxygen O2 Source Room air PD MEDICAL DECISION MAKING - ED course Complexity details: considered differential, d/w patient ED course: I discussed with the patient that she does not have otitis media, and that though she has a small area of focused erythema, I do not really find any convincing evidence of otitis externa. I have recommended anti-inflammatories and to allow time for the symptoms to resolve on their own. We have discussed the need for follow-up and the usual indications for return. Departure - Departure Disposition: 01 Home, Self Care Clinical Impression: Serous otitis media Qualifiers: Chronicity: acute Laterality: right Recurrence: non-recurrent Qualified Code(s): H65.01 - Acute serous otitis media, right ear Condition: Stable Instructions: ED Otitis Media Serous Adult Prescriptions: Ibuprofen [Motrin] 1 tablet PO Q8H PRN #30 tablet PRN Reason: PAIN &/OR FEVER Comments: You do not appear to have a middle ear infection at this time. However, you do have a little inflammation of your external ear canal, which is most likely the cause of your pain. You have been given a dose of steroid here in the emergency department to help with inflammation. A prescription has been electronically transmitted to the [facility] pharmacy in [place] for you. Please follow-up with your primary care physician if you are not feeling better after the next several days. Discharge Date/Time: 07/14/21 01:08
== END 2021-07-14 01:08 | disposition home or self-care (01) ==
LOC: ED 22:23
DX: H65.01 Acute serous otitis media, right ear (principal)
CPT/HCPCS: 99282; J7512

== ENCOUNTER 2021-08-24 22:03 | Emergency (ER) | payer MEDICAID ==
[2021-08-24 22:16] VITALS: BP 150/95
[2021-08-24] MEDS ORDERED: cephALEXin 250 MG CAPSULE PO STA (22:54)
--- NOTE | 2021-08-24 22:57 | ED Physician Documentation ---
PD HPI SKIN - Stated complaint Stated Complaint: LT LEG SWELL/PX/BUG BITE - Chief complaint Chief Complaint: Wound - History obtained from History obtained from: Patient - Additional information Additional information: Patient presenting for evaluation of pustule and surrounding erythema to left lower leg. She is unsure if she was bitten by something butNoticed the redness earlier today and has been outlining it. It has increased in size.Denies any known trauma. Denies fever, chest pain, difficulty breathing, abdominal pain, vomiting. She does have a history of chronic kidney disease.Denies history of MRSA. 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 : Chronic bladder infection, Kidney stones, Other HEENT: None Psych: Anxiety Musculoskeletal: None Derm: None, Other - Past Surgical History Past Surgical History: Yes /SAFETY DEPOSIT CLERK: Other - Present Medications Home Medications: Ambulatory Orders Medication Instructions Recorded Confirmed Ibuprofen [Motrin] 1 tablet PO Q8H PRN #30 tablet 07/14/21 cephALEXin [Keflex] 500 mg PO BID 7 Days #14 cap 08/24/21 - Allergies Allergies/Adverse Reactions: Allergies Allergy/AdvReac Type Severity Reaction Status Date / Time Penicillins Allergy Rash Verified 08/24/21 22:16 - Social History Does the pt smoke?: No Smoking Status: Never smoker Does the pt drink ETOH?: No Does the pt have substance abuse?: No - Immunizations Immunizations are current?: Yes - POLST Patient has POLST: No PD ED PE NORMAL - General General: Alert and oriented X 3, No acute distress, Well developed/nourished - HEENT HEENT: Atraumatic, Moist mucous membranes - Neck Neck: Supple, no meningeal sign - Cardiac Cardiac: RRR, No murmur, Strong equal pulses - Respiratory Respiratory: No respiratory distress, Clear bilaterally - Derm Derm: Other (1 cm pustuleTo left lower leg with 5 cmDiameter area of erythema, no other area of fluctuance, no crepitus, ) - Extremities Extremities: Other (Distal pulses intact, no bony tenderness,Compartments of leg are soft, no tracking or lymphangitic spread) Results - Vitals Vitals: Vital Signs - 24 hr 08/24/21 08/24/21 22:13 23:09 Temperature 36.3 C L Heart Rate 95 90 Respiratory 25 H 20 Rate Blood Pressure 150/95 H O2 Saturation 100 99 Oxygen O2 Source Room air Procedures - Abscess I&D (location) Lower extremity left Lower Preparation: Alcohol Incision: Needle aspiration, Purulent drainage (Very small amount as a pustule with small) Other: Pt tolerated well, Dressing applied, Antibiotic prescribed PD MEDICAL DECISION MAKING - ED course ED course: Patient presenting for evaluation of left lower extremity pustule with surrounding erythema. Unclear whether she was bit by something or there was other trauma. Does appear that she has a localized infection. Do not think she appears septic and there is no signs of lymphangitic spread.Pustule was unroofedWith small amount of pus expressed. No other fluctuance. Patient was started on Keflex. Antibiotic was renally dosed given patient's history of chronic kidney disease. SheDenied a history of MRSA.Aware of return precautions if her symptoms do not improve. Departure - Departure Disposition: 01 Home, Self Care Clinical Impression: Cellulitis of left anterior lower leg Condition: Stable Instructions: ED Infec Skin Cellulitis Prescriptions: cephALEXin [Keflex] 500 mg PO BID 7 Days #14 cap Comments: You were evaluated for a skin infection of your leg. You were started on antibiotics. This should improve within 24 to 48 hours. Return to the emergency department if there is no improvement after this time or you have worsening, if you develop fevers or with any concerns.Please take the antibiotics as prescribed.The prescription was sent to the [facility] pharmacy in [place]. Discharge Date/Time: 08/24/21 23:09
== END 2021-08-24 23:09 | disposition home or self-care (01) ==
LOC: ED 22:03
DX: L03.116 Cellulitis of left lower limb (principal)
CPT/HCPCS: 10160; 99282; A9270

== ENCOUNTER 2021-12-08 23:34 | Emergency (ER) | payer MEDICAID ==
[2021-12-09 00:08] VITALS: BP 168/101
== END 2021-12-09 00:25 | disposition left against medical advice (07) ==
LOC: ED 23:34
DX: Z53.21 Procedure and treatment not carried out due to patient leaving prior to being seen by health care provider (principal)

== ENCOUNTER 2022-01-08 22:43 | Emergency (ER) | payer MEDICAID ==
[2022-01-09] MEDS ORDERED: oxyCODONE 5 MG TABLET PO STA (00:46)
--- NOTE | 2022-01-09 00:48 | ED Physician Documentation ---
History of Present Illness - Stated complaint Stated Complaint: COUGH,L BREAST BIGGER - Chief complaint Chief Complaint: General - Additonal information Additional information: Patient is 31-year-old female presenting with 3-month history cough and 3-month left-sided breast pain and swelling. Reports history of chronic renal insufficiency but states that she does not follow-up regularly with primary care because "I do not give a fuck,". Reports negative home tests and denies any possibility of . Not actively nursing. Denies Discharge or color change of the affected breast. Also reports nonproductive cough x3 months. Reports active smokerBut does state has cut down dramatically due to her cough. 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: Ovarian cysts : Chronic bladder infection, Kidney stones, Other HEENT: None Psych: Anxiety Musculoskeletal: None Derm: None, Other - Past Surgical History Past Surgical History: Yes /POURED PIPE MAKER: Other - Present Medications Home Medications: Ambulatory Orders Medication Instructions Recorded Confirmed Ibuprofen [Motrin] 1 tablet PO Q8H PRN #30 tablet 07/14/21 cephALEXin [Keflex] 500 mg PO BID 7 Days #14 cap 08/24/21 Ibuprofen [Motrin] 800 mg PO Q8H PRN #30 tablet 01/09/22 - Allergies Allergies/Adverse Reactions: Allergies Allergy/AdvReac Type Severity Reaction Status Date / Time Penicillins Allergy Rash Verified 01/08/22 22:55 - Social History Does the pt smoke?: No Smoking Status: Never smoker Does the pt drink ETOH?: No Does the pt have substance abuse?: No - Immunizations Immunizations are current?: Yes - POLST Patient has POLST: No PD ED PE NORMAL - General General: Alert and oriented X 3 - HEENT HEENT: Atraumatic - Neck Neck: Supple, no meningeal sign - Cardiac Cardiac: RRR - Respiratory Respiratory: No respiratory distress, Clear bilaterally - Abdomen Abdomen: Normal bowel sounds - Rectal Rectal: Deferred - Derm Derm: Other (There is mild tenderness to palpation to the left breast. There is no expression from the nipple. No identifiable color change. No palpable masses.) Results - Vitals Vitals: Vital Signs - 24 hr 01/08/22 01/09/22 22:49 01:04 Temperature 36.6 C 36.5 C Heart Rate 93 80 Respiratory 20 18 Rate Blood Pressure 164/93 H 123/64 O2 Saturation 100 99 Oxygen O2 Source Room air PD MEDICAL DECISION MAKING - ED course Complexity details: reviewed results, d/w patient ED course: Patient 31-year-old female presenting with 3 months of left-sided breast pain as well as cough. Afebrile, hemodynamically stable. Some tenderness to palpation without indications of mass, mastitis or discharge to the left breast. Normal and clear aeration in all lung calle. Patient was given medication for pain control and immediately requested discharge from the emergency department. Declined all further testing including chest x-ray, urine analysis or test. Was given instructions to follow-up with primary care and to discontinue smoking. Otherwise clear return precautions and follow-up instructions given prior to discharge. Departure - Departure Disposition: 01 Home, Self Care Clinical Impression: Breast pain, Cough Prescriptions: Ibuprofen [Motrin] 800 mg PO Q8H PRN #30 tablet PRN Reason: PAIN &/OR FEVER Comments: Thank you for allowing us to care for you today at [facility]. Prescription sent electronically to [facility]. Your exam here in the emergency department today is reassuring. I do not appreciate any masses or indications of infection to your left breast. I would like you to continue to work towards abstinence from cigarettes in the future. Please do follow-up with your primary care doctor soon as possible. If it anytime you have any new or worsening symptoms please not hesitate to return. Discharge Date/Time: 01/09/22 01:04
[2022-01-09 01:05] VITALS: BP 123/64
== END 2022-01-09 01:04 | disposition home or self-care (01) ==
LOC: ED 22:43
DX: R05.9 Cough, unspecified (principal); N64.4 Mastodynia; F17.200 Nicotine dependence, unspecified, uncomplicated
CPT/HCPCS: 99282; 99284; A9270

== ENCOUNTER 2022-02-10 13:14 | Outpatient (CLI) | payer MEDICAID | END 2022-02-10 13:15 | disposition home or self-care (01) | LOC: RT 13:14 | PROVIDERS: ATTEND Internal Medicine | DX: R07.9 Chest pain, unspecified (principal) | CPT/HCPCS: 94010; 94729 ==

== ENCOUNTER 2022-03-23 10:58 | Outpatient (CLI) | payer MEDICAID ==
--- NOTE | 2022-03-24 10:15 | Mammography Report ---
BILATERAL DIGITAL DIAGNOSTIC MAMMOGRAM 3D/2D: 03/23/2022 CLINICAL: Diffuse left breast pain. Baseline exam. No prior exams were available for comparison. Both breasts are heterogeneously dense, which may obscure small masses (category c / 51-75% glandular tissue). There is an oval mass with an obscured margin in the right breast at 6 o'clock anterior depth. This correlates as an incidental finding. No mass seen in the left breast. Diffuse left breast pain. No other significant masses, calcifications, or other findings are seen in either breast. IMPRESSION: INCOMPLETE: NEEDS ADDITIONAL IMAGING EVALUATION The oval mass in the right breast is indeterminate. -A targeted ultrasound is recommended and will immediately follow. No mass seen in the left breast. Diffuse left breast pain. -Patient is advised to monitor for significant change. Clinical follow-up as needed. Based on the Tyrer Cuzick model (a risk assessment model) the patients lifetime risk is 9.6% and her 10 year risk is 0.5%. According to the ACR, ACS, and NCCN guidelines, an annual breast MRI exam giulia g with mammogram is recommended if the patients lifetime risk is 20% or greater. This exam was interpreted at Station ID: [id number]. NOTE: For mammograms, a report in lay terms will be sent to the patient. Approximately 15% of breast malignancies will not be visualized mammographically. In the management of a palpable breast mass, a negative mammogram must not discourage biopsy of a clinically suspicious lesion. Electronically Signed By: Hal Vera M.D. slc/:03/23/2022 12:29:54 ACR BI-RADS Category 0: Incomplete 3340F PARENCHYMAL PATTERN: (D) - The breast(s) demonstrate(s) heterogeneously dense fibroglandular parclaude keane. BI-RADS CATEGORY: (0) - 0 Ultrasound [id number] Immediate follow-up LATERALITY: (B)
--- NOTE | 2022-03-24 10:15 | Ultrasound Report ---
LIMITED ULTRASOUND OF RIGHT BREAST AND AXILLA: 03/23/2022 CLINICAL: Patient returns today to evaluate a focal asymmetry in the right breast. Comparison is made to exam dated: 03/23/2022 mammogram - [facility]. Color flow and real-time ultrasound of the right breast 6-7 o'clock, and axilla regions were performe d. Pimentel scale images of the real-time examination were reviewed. There is a 0.7 cm x 0.7 cm x 0.4 cm oval mass in the right breast at 7 o'clock anterior depth 4 cm fr om the nipple. This oval mass is hypoechoic with a well-defined boundary and posterior acoustic enha ncement. Color flow imaging demonstrates that there is no vascularity present. No significant abnormalities were seen sonographically in the right axilla. IMPRESSION: PROBABLY BENIGN The 0.7 cm oval mass in the right breast resembles a fibroadenoma and is probably benign. A follow-up ultrasound in 6 months is recommended to demonstrate stability. No enlarged right axillary lymph nodes. Exam findings were discussed with the patient by Dr Flores. Option for US guided biopsy was also discuss ed. Patient is advised to monitor for significant change. Clinical follow-up as needed. This exam was interpreted at Station ID: [id number]. Electronically Signed By: Hal Vera M.D. slc/:03/23/2022 12:36:18 Ultrasound BI-RADS: 3 Probably benign BI-RADS CATEGORY: (3) - 3 Ultrasound [id number] 6 month follow-up LATERALITY: (B)
== END 2022-03-23 10:59 | disposition home or self-care (01) ==
LOC: DI 10:58
PROVIDERS: ATTEND Nurse Practitioner
DX: N64.4 Mastodynia (principal); N63.13 Unspecified lump in the right breast, lower outer quadrant

== ENCOUNTER 2022-03-23 11:00 | Outpatient (CLI) | payer MEDICAID ==
--- NOTE | 2022-03-23 13:53 | XRAY Report ---
PROCEDURE: Chest 2 View X-Ray INDICATIONS: BRONCHITIS TECHNIQUE: 2 view(s) of the chest. COMPARISON: 01/20/2016. FINDINGS: Surgical changes and devices: None. Lungs and pleura: No pleural effusions or pneumothorax. Mild bronchial wall thickening in bilateral hilar region is seen . No focal infiltrate. Mediastinum: Mediastinal contours are normal. Heart size is normal. Bones and chest wall: No suspicious bony abnormalities. Soft tissues appear unremarkable. IMPRESSION: Mild bronchial wall thickening consistent with reactive airway disease such as bronchiti s or asthma. No focal infiltrate, pleural effusion or pneumothorax. Reviewed by: Reese Ulloa MD on 03/23/2022 1:52 PM PDT Approved by: Reese Ulloa MD on 03/23/2022 1:52 PM PDT Station ID: [id number]
== END 2022-03-23 11:01 | disposition home or self-care (01) ==
LOC: DI 11:00
PROVIDERS: ATTEND Internal Medicine
DX: J20.9 Acute bronchitis, unspecified (principal)

== ENCOUNTER 2022-03-23 12:19 | Outpatient (CLI) | payer MEDICAID ==
[2022-03-23 12:40] LABS: BASOPHILS # (AUTO) 0.1 10^3/uL (0.0-0.1); BASOPHILS % (AUTO) 0.6 %; EOSINOPHILS # (AUTO) 0.3 10^3/uL (0.0-0.7); EOSINOPHILS % (AUTO) 3.1 %; HCT - HEMATOCRIT 38.4 % (37.0-47.0); HGB - HEMOGLOBIN 12.5 g/dL (12.0-16.0); LYMPHOCYTES % (AUTO) 21.5 %; MEAN CORPUSCULAR HEMOGLOBIN 30.5 pg (27.0-31.0); MEAN CORPUSCULAR HGB CONC 32.6 g/dL (32.0-36.0); MEAN CORPUSCULAR VOLUME 93.7 fL (81.0-99.0); MEAN PLATELET VOLUME 9.9 fL (7.9-10.8); MONOCYTES # (AUTO) 0.4 10^3/uL (0.0-1.0); MONOCYTES % (AUTO) 4.4 %; NEUTROPHILS # (AUTO) 6.6 10^3/uL (1.5-6.6); NEUTROPHILS % (AUTO) 70.1 %; PLT - PLATELET COUNT 234 10^3/uL (130-450); WHITE BLOOD COUNT 9.4 x10^3/uL (4.8-10.8)
[2022-03-23 12:57] LABS: CALCIUM 9.2 mg/dL (8.5-10.3); CREATININE 4.1 mg/dL (0.4-1.0); PHOSPHORUS 4.1 mg/dL (2.5-4.6); POTASSIUM 3.5 mmol/L (3.5-5.0)
== END 2022-03-23 12:20 | disposition home or self-care (01) ==
LOC: LAB 12:19
PROVIDERS: ATTEND Internal Medicine Nephrology
DX: N18.5 Chronic kidney disease, stage 5 (principal); F32.9 Major depressive disorder, single episode, unspecified; G43.909 Migraine, unspecified, not intractable, without status migrainosus; Z79.899 Other long term (current) drug therapy
CPT/HCPCS: 36415; 80069; 82306; 83970; 85025

== ENCOUNTER 2022-05-04 08:50 | Outpatient (CLI) | payer MEDICAID | END 2022-05-04 08:51 | disposition critical access hospital (66) | LOC: EMS 08:50 | DX: R51.9 Headache, unspecified (principal); J02.9 Acute pharyngitis, unspecified; R42 Dizziness and giddiness; R05.9 Cough, unspecified | CPT/HCPCS: A0425; A0429; A0999 ==

== ENCOUNTER 2022-05-04 09:09 | Emergency (ER) | payer MEDICAID ==
[2022-05-04] MEDS ORDERED: ACETAMINOPHEN 325 MG TABLET PO STA (09:49)
[2022-05-04] MEDS ORDERED: SODIUM CHLORIDE 0.9% 1,000 ML IV STA (09:49)
[2022-05-04 10:06] VITALS: BP 160/94
--- NOTE | 2022-05-04 10:08 | ED Physician Documentation ---
History of Present Illness - Stated complaint Stated Complaint: FLU LIKE SYMPTOMS - Chief complaint Chief Complaint: Fever - History obtained from History obtained from: Patient - Additonal information Additional information: The patient comes to the emergency department chief complaint of "I got that fucking cold that is going around". She states that she has had body aches, sore throat, cough, and rhinorrhea. She states she just generally does not feel well. The patient has a history of chronic renal insufficiency but does not follow-up for this. She denies any measured fevers. She states she thinks she got the illness from somebody at work. She does not know what diagnosis they may have had. No other complaints at this time. Review of Systems Ten Systems: 10 systems reviewed and negative Constitutional: reports: Myalgias, Fatigue Eyes: reports: Reviewed and negative Ears: reports: Reviewed and negative Nose: reports: Rhinorrhea / runny nose, Congestion Throat: reports: Reviewed and negative Cardiac: reports: Reviewed and negative Respiratory: reports: Cough GI: reports: Reviewed and negative. denies: Nausea, Vomiting : reports: Reviewed and negative Skin: reports: Reviewed and negative Musculoskeletal: reports: Reviewed and negative Neurologic: reports: Reviewed and negative Psychiatric: reports: Reviewed and negative Endocrine: reports: Reviewed and negative Immunocompromised: reports: Reviewed and negative PD PAST MEDICAL HISTORY - Past Medical History Past Medical History: Yes Cardiovascular: None Respiratory: None Neuro: None Endocrine/Autoimmune: None GI: None [employer]OR [employer]GEMENT: Ovarian cysts : Chronic bladder infection, Renal insuffiency, Kidney stones, Other HEENT: None Psych: Anxiety Musculoskeletal: None Derm: Other - Past Surgical History Past Surgical History: Yes /[employer]ISK [employer]NAGEMENT: Other - Present Medications Home Medications: Ambulatory Orders Medication Instructions Recorded Confirmed No Known Home Medications 05/04/22 05/04/22 - Allergies Allergies/Adverse Reactions: Allergies Allergy/AdvReac Type Severity Reaction Status Date / Time Penicillins Allergy Rash Verified 05/04/22 09:17 - Social History Does the pt smoke?: No Smoking Status: Never smoker Does the pt drink ETOH?: No Does the pt have substance abuse?: No - Immunizations Immunizations are current?: No Immunizations: Other immun not current - POLST Patient has POLST: No PD ED PE NORMAL - Vitals Vital signs reviewed: Yes - General General: Alert and oriented X 3, No acute distress, Well developed/nourished, Other (Patient appears somewhat uncomfortable but otherwise no apparent distress. She is irritable and states that she just wants to be "knocked out".) - HEENT HEENT: Atraumatic, PERRL, EOMI, Moist mucous membranes - Neck Neck: Supple, no meningeal sign - Cardiac Cardiac: RRR, No murmur, Strong equal pulses - Respiratory Respiratory: No respiratory distress, Clear bilaterally - Abdomen Abdomen: Soft, Non tender, Non distended - Derm Derm: Normal color, Warm and dry, No rash - Extremities Extremities: No deformity, No edema - Neuro Neuro: Alert and oriented X 3 - Psych Psych: Normal mood, Normal affect Results - Vitals Vitals: Vital Signs - 24 hr 05/04/22 05/04/22 09:18 10:06 Temperature 36.9 C Heart Rate 92 109 H Respiratory 24 24 Rate Blood Pressure 160/113 H 160/94 H O2 Saturation 100 99 Oxygen O2 Source Room air - Labs Labs: Laboratory Tests 05/04/22 09:45 Influenza A (Rapid) POSITIVE H Influenza B (Rapid) Negative PD MEDICAL DECISION MAKING - ED course Complexity details: reviewed results, re-evaluated patient, considered differential, d/w patient ED course: The patient stated she mainly wanted symptomatic treatment, And requested to be "knocked out". I told the patient that we would not be sedating her, but that I could treat her symptomatically. I ordered influenza testing, as well as IV fluids and Tylenol. I felt was best to avoid NSAIDs since the patient does have some underlying renal insufficiency, the severity of which we are not sure. However, the patient declined the IV fluids. Departure - Departure Disposition: 01 Home, Self Care Clinical Impression: Influenza A Condition: Stable Instructions: ED Flu Comments: Your influenza a test is positive for influenza A. You have declined IV management in the emergency department and otherwise, there is really no other treatment for influenza. You will need to drink plenty of fluids at home and take Tylenol as needed. You should avoid ibuprofen because of your kidney issues. There is not really a role for any other medication at this point in time. Viruses are miserable, but your body will need to get rid of this on its own. Antibiotics do not help. A work note has been provided for the next several days while you recover. Total time for symptoms for influenza can range anywhere from several days to couple of weeks, though the symptoms usually begin to improve before that. Forms: Activity restrictions
== END 2022-05-04 10:27 | disposition home or self-care (01) ==
LOC: EDUNIT# → ED 09:09
DX: J10.1 Influenza due to other identified influenza virus with other respiratory manifestations (principal); N28.9 Disorder of kidney and ureter, unspecified
CPT/HCPCS: 87275; 87276; 99282; 99283; A9270

== ENCOUNTER 2022-05-14 16:06 | Emergency (ER) | payer MEDICAID ==
[2022-05-14 19:04] LABS: BILIRUBIN,URINE NEGATIVE (NEGATIVE); GLUCOSE, URINE (UA) 100 mg/dL (NEGATIVE); KETONES,URINE (UA) NEGATIVE (NEGATIVE); LEUKOCYTE ESTERASE, URINE NEGATIVE (NEGATIVE); NITRITE,URINE NEGATIVE (NEGATIVE); OCCULT BLOOD,URINE SMALL (NEGATIVE); PROTEIN,URINE >=300 mg/dL (NEGATIVE); UROBILINOGEN,URINE 0.2 (NORMAL) E.U./dL (NORMAL)
[2022-05-14 19:15] LABS: CLARITY,URINE CLEAR (CLEAR)
[2022-05-14 19:16] LABS: BACTERIA,URINE Few /HPF (None Seen); RBC,URINE None Seen /HPF (0-5); SQUAMOUS EPITHELIAL CELL,UR MANY Squamous (<= Few); WBC,URINE 0-3 /HPF (0-5)
[2022-05-14 19:28] LABS: BASOPHILS % (AUTO) 0.2 %; EOSINOPHILS # (AUTO) 0.1 10^3/uL (0.0-0.7); EOSINOPHILS % (AUTO) 0.7 %; HCT - HEMATOCRIT 37.6 % (37.0-47.0); HGB - HEMOGLOBIN 12.1 g/dL (12.0-16.0); LYMPHOCYTES # (AUTO) 0.8 10^3/uL (1.5-3.5); MEAN CORPUSCULAR HEMOGLOBIN 29.5 pg (27.0-31.0); MEAN CORPUSCULAR HGB CONC 32.2 g/dL (32.0-36.0); MEAN CORPUSCULAR VOLUME 91.7 fL (81.0-99.0); MEAN PLATELET VOLUME 10.3 fL (7.9-10.8); MONOCYTES # (AUTO) 1.4 10^3/uL (0.0-1.0); MONOCYTES % (AUTO) 8.4 %; NEUTROPHILS # (AUTO) 14.3 10^3/uL (1.5-6.6); NEUTROPHILS % (AUTO) 85.3 %; PLT - PLATELET COUNT 250 10^3/uL (130-450); RED CELL DISTRIBUTION WIDTH 12.8 % (12.0-15.0); WHITE BLOOD COUNT 16.7 x10^3/uL (4.8-10.8)
[2022-05-14 19:42] LABS: ALBUMIN 3.1 g/dL (3.2-5.5); ALBUMIN/GLOBULIN RATIO 0.8 (1.0-2.2); BILIRUBIN,TOTAL 0.3 mg/dL (0.2-1.0); CALCIUM 8.6 mg/dL (8.5-10.3); CREATININE 4.8 mg/dL (0.4-1.0); POTASSIUM 4.3 mmol/L (3.5-5.0); TOTAL PROTEIN 7.1 g/dL (6.7-8.2)
[2022-05-14 19:56] VITALS: BP 130/88
[2022-05-14] MEDS ORDERED: ACETAMINOPHEN 325 MG TABLET PO STA (20:05)
[2022-05-14] MEDS ORDERED: ONDANSETRON ODT 4 MG TABLET TL STA (20:05)
--- NOTE | 2022-05-14 20:12 | ED Physician Documentation ---
History of Present Illness - Stated complaint Stated Complaint: EAR PX/KIDNEY PX - Chief complaint Chief Complaint: Heent - History obtained from History obtained from: Patient - Additonal information Additional information: This is a 32-year-old female who presents with right ear pain for several days. She states she feels like she has an ear infection. She has been sticking cotton in it because that feels better. She has not had a fever to her knowledge, has not had any cough or URI symptoms, no chest pain or difficulty breathing. She did have flulike symptoms about 10 days ago that have improved. The patient is also complaining about "pain in my kidneys." The patient unfortunately does have end-stage renal disease, not yet on dialysis but states that she has been speaking with her canine enforcement officer, Dr. Mancera, about dialysis and she also apparently has a transplant evaluation in June. She states that he feels like her kidneys are getting worse and they ache and she was concerned that she had decreased kidney function. She has not had dysuria and continues to void, has not had other abdominal pain. She does have nausea at times though states that this is not new and she has some antiemetics at home, she denies any significant vomiting or diarrhea recently to result in fluid loss. She states she does not want to any IV fluids, does not want any CT scans or other evaluations today. She would like some Tylenol however for her pain. She has not been taking any NSAIDs and states that she cannot tolerate any other pain medication due to nausea and vomiting with them. She reports that she does have a follow-up with her canine enforcement officer scheduled on June 08 but will call Monday to try to get in earlier. Review of Systems Ten Systems: 10 systems reviewed and negative (except as per HPI) PD PAST MEDICAL HISTORY - Past Medical History Past Medical History: Yes Cardiovascular: None Respiratory: None Neuro: None Endocrine/Autoimmune: None GI: None [employer]IG[employer]: Ovarian cysts : Chronic bladder infection, Renal insuffiency, Kidney stones, Other HEENT: None Psych: Anxiety Musculoskeletal: None Derm: Other - Past Surgical History Past Surgical History: Yes /INVE[employer]ATION [employer]: Other - Present Medications Home Medications: Ambulatory Orders Medication Instructions Recorded Confirmed Cefdinir 300 mg PO DAILY #7 cap 05/14/22 - Allergies Allergies/Adverse Reactions: Allergies Allergy/AdvReac Type Severity Reaction Status Date / Time Penicillins Allergy Rash Verified 05/14/22 17:09 - Social History Does the pt smoke?: No Smoking Status: Never smoker Does the pt drink ETOH?: No Does the pt have substance abuse?: No - Immunizations Immunizations are current?: No Immunizations: Other immun not current - POLST Patient has POLST: No PD ED PE NORMAL - Vitals Vital signs reviewed: Yes - General General: Alert and oriented X 3, Well developed/nourished, Other (crying) - HEENT HEENT: Atraumatic, Moist mucous membranes - Cardiac Cardiac: RRR, No murmur, No gallop, No rub - Respiratory Respiratory: No respiratory distress, Clear bilaterally - Abdomen Abdomen: Normal bowel sounds, Soft, Non tender, Non distended - Back Back: Other (both kidneys hurt) - Derm Derm: Normal color, Warm and dry, No rash - Extremities Extremities: No deformity - Neuro Neuro: Alert and oriented X 3 Eye Opening: Spontaneous Motor: Obeys Commands Verbal: Oriented GCS Score: 15 Results - Vitals Vitals: Vital Signs - 24 hr 05/14/22 05/14/22 05/14/22 17:03 17:09 19:55 Temperature 36.4 C L 36.5 C 36.5 C Heart Rate 113 H 113 H 90 Respiratory 20 20 18 Rate Blood Pressure 149/94 H 149/94 H 130/88 H O2 Saturation 100 100 100 Oxygen O2 Source Room air - Labs Labs: Laboratory Tests 05/14/22 05/14/22 05/14/22 18:58 19:22 19:22 WBC 16.7 H RBC 4.10 L Hgb 12.1 Hct 37.6 MCV 91.7 MCH 29.5 MCHC 32.2 RDW 12.8 Plt Count 250 MPV 10.3 Neut # (Auto) 14.3 H Lymph # (Auto) 0.8 L [place] # (Auto) 1.4 H Eos # (Auto) 0.1 Baso # (Auto) 0.0 Absolute Nucleated RBC 0.00 Nucleated RBC % 0.0 Sodium 140 Potassium 4.3 Chloride 110 Carbon Dioxide 17 L Anion Gap 13.0 BUN 43 H Creatinine 4.8 H Estimated GFR (MDRD) 10 L Glucose 91 Calcium 8.6 Total Bilirubin 0.3 AST 20 ALT 34 Alkaline Phosphatase 81 Total Protein 7.1 Albumin 3.1 L Globulin 4.0 Albumin/Globulin Ratio 0.8 L Lipase 36 Urine Color YELLOW Urine Clarity CLEAR Urine pH 6.0 Ur Specific [place] 1.020 Urine Protein >=300 H Urine Glucose (UA) 100 H Urine Ketones NEGATIVE Urine Occult Blood SMALL H Urine Nitrite NEGATIVE Urine Bilirubin NEGATIVE Urine Urobilinogen 0.2 (NORMAL) Ur Leukocyte Esterase NEGATIVE Urine RBC None Seen Urine WBC 0-3 Ur Squamous Epith Cells MANY Squamous H Urine Bacteria Few Ur Microscopic Review INDICATED Urine Culture Comments NOT INDICATED PD MEDICAL DECISION MAKING - ED course Complexity details: reviewed results, re-evaluated patient, d/w patient ED course: This is a 32-year-old female with a past medical history of end-stage renal disease, not yet on dialysis, followed by Dr. Mancera, nephrology. She presents primarily due to right ear pain which he has had for couple of days, worsening. She recently had influenza A. Her right ear is red and slightly bulging and I think reasonable to treat for infection given the significant amount of pain patient is in. She does not have signs of Mastoiditis on physical exam, there is no ear drainage. She has no other sinus symptoms at this time. We we will treat with cefdinir once daily per renal function and per PCN allergy, patient has appeared to tolerate cephalosporins in the past. We did obtain labs prior to my evaluation and these are significant for white blood cell count of 16,000 otherwise stable CBC, her renal function has worsened over the course of the last 6 weeks with a creatinine rising from 4.1-4.8 and GFR from 13 down to 10. Her potassium is within normal range. She has otherwise stable CMP. I discussed these findings with patient and discussed my concerns, recommended that we try to hydrate her to see if we can get back to her recent baseline, or obtain a CT noncontrast to evaluate for any other causes such as a kidney stone however patient declined. Her urinalysis does not show infection but she does have significant proteinuria. The patient declined any additional evaluation of her kidneys and stated that she would follow-up with Dr. Mancera at her appointment or try to get in sooner. She does not need emergent dialysis but is trending down and was advised that she should follow-up with Dr. Mancera as soon as she can and return if she feels like she is worsening. She is aware of nephrotoxins to avoid. She was given Tylenol for pain and Zofran as needed for nausea. She will try to stay well-hydrated at home, and she is to follow-up if she has any new or worsening symptoms. Departure - Departure Disposition: 01 Home, Self Care Clinical Impression: Renal insufficiency Otitis media Qualifiers: Otitis media type: other nonsuppurative Chronicity: acute Laterality: right Recurrence: not specified as recurrent Qualified Code(s): H65.191 - Other acute nonsuppurative otitis media, right ear Instructions: ED Otitis Media Acute Adult Prescriptions: Cefdinir 300 mg PO DAILY #7 cap Comments: You presented with right ear pain and it does appear that you are developing a right ear infection. You have an allergy to penicillin so I am going to treat you with a medication called cefdinir. You should take this medication only once a day given your renal function. You should avoid any NSAIDs which are ibuprofen and naproxen or similar. You can take Tylenol for pain. Your kidney function has worsened from your last labs that I can see. You will need to follow-up with your kidney doctor as soon as possible. Your kidney function has unfortunately progressively worsened recently. You did not want any IV fluids today which may help slightly with your kidney function given your recent illness, and you did not want any imaging of the kidneys today, but you may try to increase your oral fluid intake, primarily with water. If you feel you have worsening symptoms, please return to the ER.
== END 2022-05-14 20:34 | disposition home or self-care (01) ==
LOC: ED 16:06
DX: N18.6 End stage renal disease (principal); H65.191 Other acute nonsuppurative otitis media, right ear; Z88.0 Allergy status to penicillin
CPT/HCPCS: 36415; 80053; 81001; 83690; 85025; 99283; 99284; A9270; Q0162; 81003; 87086

== ENCOUNTER 2022-06-02 15:59 | Outpatient (CLI) | payer MEDICAID ==
[2022-06-02 17:45] LABS: BASOPHILS # (AUTO) 0.1 10^3/uL (0.0-0.1); BASOPHILS % (AUTO) 0.8 %; EOSINOPHILS # (AUTO) 0.1 10^3/uL (0.0-0.7); EOSINOPHILS % (AUTO) 1.5 %; HCT - HEMATOCRIT 36.2 % (37.0-47.0); HGB - HEMOGLOBIN 11.5 g/dL (12.0-16.0); LYMPHOCYTES # (AUTO) 1.6 10^3/uL (1.5-3.5); LYMPHOCYTES % (AUTO) 20.3 %; MEAN CORPUSCULAR HEMOGLOBIN 29.3 pg (27.0-31.0); MEAN CORPUSCULAR HGB CONC 31.8 g/dL (32.0-36.0); MEAN CORPUSCULAR VOLUME 92.1 fL (81.0-99.0); MEAN PLATELET VOLUME 10.2 fL (7.9-10.8); MONOCYTES # (AUTO) 0.4 10^3/uL (0.0-1.0); MONOCYTES % (AUTO) 5.1 %; NEUTROPHILS # (AUTO) 5.6 10^3/uL (1.5-6.6); NEUTROPHILS % (AUTO) 71.9 %; PLT - PLATELET COUNT 337 10^3/uL (130-450); RED BLOOD COUNT 3.93 10^6/uL (4.20-5.40); RED CELL DISTRIBUTION WIDTH 12.8 % (12.0-15.0); WHITE BLOOD COUNT 7.8 x10^3/uL (4.8-10.8)
[2022-06-02 18:16] LABS: ALBUMIN 3.7 g/dL (3.2-5.5); CALCIUM 9.4 mg/dL (8.5-10.3); CREATININE 4.3 mg/dL (0.4-1.0); PHOSPHORUS 5.1 mg/dL (2.5-4.6); POTASSIUM 5.2 mmol/L (3.5-5.0)
== END 2022-06-02 16:00 | disposition home or self-care (01) ==
LOC: LAB.N 15:59
PROVIDERS: ATTEND Internal Medicine Nephrology
DX: N18.5 Chronic kidney disease, stage 5 (principal)
CPT/HCPCS: 36415; 80069; 82306; 83970; 85025

== ENCOUNTER 2022-10-04 13:15 | Outpatient (CLI) | payer MEDICAID ==
--- NOTE | 2022-10-05 09:39 | Ultrasound Report ---
LIMITED ULTRASOUND OF RIGHT BREAST: 10/04/2022 CLINICAL: Patient returns for a 6 month follow up of the right breast. Comparison is made to exams dated: 03/23/2022 ultrasound and 03/23/2022 mammogram - [facility]. Color flow ultrasound of the right breast 7 o'clock region was performed. Pimentel scale images of the r eal-time examination were reviewed. There is a 0.6 cm x 0.3 cm x 0.5 cm wider than tall oval mass in the right breast at 7 o'clock middle depth 4 cm from the nipple. This oval mass is hypoechoic with a well-defined boundary and posterior acoustic enhancement. This abnormality is not significantly changed. Color flow imaging demonstrat es that there is no vascularity present. IMPRESSION: PROBABLY BENIGN The 0.6 cm x 0.3 cm x 0.5 cm wider than tall oval mass in the right breast resembles a fibroadenoma a nd is probably benign. A follow-up right ultrasound in 6 months is recommended to demonstrate stability. Findings and recommendations were conveyed to the patient during today's evaluation. This exam was interpreted at Station ID: [id number]. Electronically Signed By: Blair Leija M.D. aty/:10/04/2022 14:00:37 Ultrasound BI-RADS: 3 Probably benign BI-RADS CATEGORY: (3) - 3 Ultrasound [id number] 6 month follow-up LATERALITY: (R)
== END 2022-10-04 13:16 | disposition home or self-care (01) ==
LOC: DI 13:15
PROVIDERS: ATTEND Nurse Practitioner
DX: N63.13 Unspecified lump in the right breast, lower outer quadrant (principal)

== ENCOUNTER 2022-10-25 18:15 | Outpatient (CLI) | payer MEDICAID ==
[2022-10-25 18:26] LABS: MUDS CUTOFF CONCENTRATIONS CUTOFF CONC BELOW:
[2022-10-25 18:46] LABS: AMPHETAMINE SCREEN,URINE NEGATIVE (NEGATIVE); BARBITURATE SCREEN,UR NEGATIVE (NEGATIVE); BENZODIAZEPINES SCREEN, URINE NEGATIVE (NEGATIVE); COCAINE SCREEN URINE POSITIVE (NEGATIVE); METHADONE SCREEN, URINE NEGATIVE (NEGATIVE); METHAMPHETAMINES SCREEN, URINE NEGATIVE (NEGATIVE); OPIATE SCREEN, URINE NEGATIVE (NEGATIVE); OXYCODONE SCREEN, URINE NEGATIVE (NEGATIVE); PROPOXYPHENE SCREEN, URINE NEGATIVE (NEGATIVE); THC CANNABINOID SCREEN, URINE NEGATIVE (NEGATIVE); TRICYCLIC ANTIDEPRESSANT,URINE NEGATIVE (NEGATIVE)
== END 2022-10-25 18:16 | disposition home or self-care (01) ==
LOC: LAB 18:15
PROVIDERS: ATTEND Internal Medicine
DX: N18.6 End stage renal disease (principal); Z99.2 Dependence on renal dialysis
CPT/HCPCS: 80306; 86900; 86901

== ENCOUNTER 2022-11-19 23:21 | Emergency (ER) | payer MEDICARE, MEDICAID ==
[2022-11-19] MEDS ORDERED: CLINDAMYCIN 150 MG CAPSULE PO STA (23:48)
--- NOTE | 2022-11-19 23:53 | ED Physician Documentation ---
History of Present Illness - Stated complaint Stated Complaint: RT EYE/FACIAL SWELLING - Chief complaint Chief Complaint: Heent - Additonal information Additional information: Patient is a 32-year-old female with known past medical history significant for renal insufficiency on hemodialysis 3 times weekly presenting with right-sided eye swelling. Swelling has been present for a week. She reports on Monday she first noticed small bug bites around her legs that improved with Benadryl. Since then developed some swelling on the outer aspect of the eye. Denies any pain with extraocular motion. Has not been to dialysis since Monday of last week stating "I did not feel well and I did not want to get anyone else infected". Review of Systems Constitutional: reports: Fever Eyes: reports: Irritation. 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: Ovarian cysts : Chronic bladder infection, Renal insuffiency, Kidney stones, Other HEENT: None Psych: Anxiety Musculoskeletal: None Derm: Other - Past Surgical 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: Other - Present Medications Home Medications: Ambulatory Orders Medication Instructions Recorded Confirmed Cefdinir 300 mg PO DAILY #7 cap 05/14/22 clindamycin HCL [Cleocin HCl] 450 mg PO TID #40 cap 11/19/22 - Allergies Allergies/Adverse Reactions: Allergies Allergy/AdvReac Type Severity Reaction Status Date / Time Penicillins Allergy Rash Verified 11/19/22 23:33 - Social History Does the pt smoke?: No Smoking Status: Never smoker Does the pt drink ETOH?: No Does the pt have substance abuse?: No - Immunizations Immunizations are current?: No Immunizations: Other immun not current - POLST Patient has POLST: No PD ED PE NORMAL - Vitals Vital signs reviewed: Yes - General General: Alert and oriented X 3, No acute distress - HEENT HEENT: Other (There is some mild well-demarcated erythema around the right eye. There is no decrease in extraocular motion. Red light reflex is present on ophthalmologic exam. Pupils equal round and reactive.) - Neck Neck: Supple, no meningeal sign - Cardiac Cardiac: RRR - Respiratory Respiratory: No respiratory distress - Abdomen Abdomen: Normal bowel sounds - Female Female : Deferred - Rectal Rectal: Deferred - Extremities Extremities: No deformity - Neuro Neuro: Alert and oriented X 3, oracle etl developer 2-12 intact, No motor deficit, Normal speech - Psych Psych: Other (Patient seems quite anxious with pressured rapid speech.) Results - Vitals Vitals: Vital Signs - 24 hr 11/19/22 11/19/22 23:29 23:47 Temperature 37.0 C Heart Rate 130 H 120 H Respiratory 19 18 Rate Blood Pressure 184/112 H 172/100 H O2 Saturation 100 100 Oxygen O2 Source Room air PD Medical Decision Making - ED course Complexity details: considered differential, d/w patient ED course: Patient is 32-year-old female, known history of end-stage renal disease presenting to the emergency department with right eye swelling. Has missed her last 2 sessions of hemodialysis. Arrives afebrile, hemodynamically stable but tachycardic with an anxious affect and rapid pressured speech. Moderate erythema around the right orbit with no decrease in range of motion or notable pain or discomfort with extraocular motion. She did report that she had had some bug bites potentially earlier in the week that responded to antihistamine. Local area bug bite/histamine reaction is considered strongly in the differential for the swelling around her right eye however patient reiterates repeatedly "I am afraid it is a staph infection, I was recently hospitalized for staph infection. She was offered blood work for evaluation of her current renal function and electrolytes. She states "I do not want that, I know that this is not my kidneys and I know that you just have to transfer me if you check my blood work". Did have a conversation about the potential for significant/severe electrolyte abnormality including hyperkalemia and the risk of sudden cardiac . She verbalized understanding of this but reiterated that she did not want any blood work done. We discussed uses of [id number] oral histamines and cold compresses on her eye. In interest of shared decision making patient will be started on short Course clindamycin. Medication chosen due to her renal function as well as her penicillin allergy. Encourage increased intake and fiber full fluids and natural probiotics. Patient strongly encouraged to not miss her next session of dialysis. Clear return precautions given. Departure - Departure Disposition: 01 Home, Self Care Clinical Impression: Periorbital cellulitis of right eye Instructions: Cellulitis Dc Prescriptions: clindamycin HCL [Cleocin HCl] 450 mg PO TID #40 cap Comments: Thank you for allowing us to care for you today at [facility]. I will be discharging with a prescription for clindamycin. Please take this as directed. Please increase your intake and fiber for fluids and natural probiotics while on antibiotics. I also recommend regular cold rags or cold compresses to your right eye. I am very concerned about your recent missed dialysis sessions. As we discussed it is very important that you not miss further sessions. If it anytime you have new or worsening symptoms please not hesitate to return.
[2022-11-20 00:07] VITALS: BP 159/100
== END 2022-11-20 00:04 | disposition home or self-care (01) ==
LOC: ED 23:21
DX: L03.213 Periorbital cellulitis (principal); N18.6 End stage renal disease; Z99.2 Dependence on renal dialysis
CPT/HCPCS: 99282; 99283; A9270

== ENCOUNTER 2023-08-10 13:09 | Outpatient (CLI) | payer MEDICARE, MEDICAID ==
--- NOTE | 2023-08-11 09:41 | Ultrasound Report ---
LIMITED ULTRASOUND OF RIGHT BREAST: 08/10/2023 CLINICAL: Patient returns for a 6 month follow up of the right breast. Comparison is made to exams dated: 10/04/2022 ultrasound, 03/23/2022 ultrasound, and 03/23/2022 mammo [facility]. Color flow ultrasound of the right breast 7 o'clock region was performed. Pimentel scale images of the r eal-time examination were reviewed. There is a stable 0.6 cm x 0.4 cm x 0.3 cm oval cyst in the right breast at 7 o'clock middle depth 4 cm from the nipple. This oval cyst is hypoechoic with a well-defined boundary and internal echoes. This correlates with mammography findings. Color flow imaging demonstrates that there is no vascular ity present. IMPRESSION: PROBABLY BENIGN The stable 0.6 cm complicated cyst or fibroadenoma in the right breast is probably benign. A follow-up ultrasound in 6 months is recommended to demonstrate long-term stability. Exam findings were conveyed to the patient. This exam was interpreted at Station ID: [id number]. Electronically Signed By: Hal Vera M.D. [facility]/:08/10/2023 14:11:25 Ultrasound BI-RADS: 3 Probably benign BI-RADS CATEGORY: (3) - 3 Ultrasound [id number] 6 month follow-up LATERALITY: (B)
== END 2023-08-10 13:10 | disposition home or self-care (01) ==
LOC: DI 13:09
PROVIDERS: ATTEND Nurse Practitioner
DX: N60.01 Solitary cyst of right breast (principal)

== ENCOUNTER 2023-09-09 19:01 | Outpatient (CLI) | payer MEDICARE, MEDICAID | END 2023-09-09 23:59 | disposition left against medical advice (07) | LOC: EMS 19:01 | DX: M25.511 Pain in right shoulder (principal); M79.601 Pain in right arm; Z99.2 Dependence on renal dialysis; I10 Essential (primary) hypertension; R00.0 Tachycardia, unspecified ==

== ENCOUNTER 2024-02-09 19:55 | Outpatient (CLI) | payer MEDICARE, MEDICAID | END 2024-02-09 19:56 | disposition left against medical advice (07) | LOC: EMS 19:55 | DX: R07.89 Other chest pain (principal); Z99.2 Dependence on renal dialysis; R06.82 Tachypnea, not elsewhere classified; R00.0 Tachycardia, unspecified ==

== ENCOUNTER 2024-02-14 18:05 | Outpatient (CLI) | payer MEDICARE, MEDICAID | END 2024-02-14 18:06 | disposition left against medical advice (07) | LOC: EMS 18:05 | DX: R07.89 Other chest pain (principal) ==